=== PATIENT | female | born 1955 | race Caucasian/White ===

== ENCOUNTER 2017-05-04 17:10 | Emergency (ER) | payer OTHER | END 2017-05-04 19:58 | LOC: M ED 17:10 | DX: S22.41XA Multiple fractures of ribs, right side, initial encounter for closed fracture (principal); W01.0XXA Fall on same level from slipping, tripping and stumbling without subsequent striking against object, initial encounter; Y92.018 Other place in single-family (private) house as the place of occurrence of the external cause; M25.511 Pain in right shoulder; E78.00 Pure hypercholesterolemia, unspecified; E03.9 Hypothyroidism, unspecified; M81.0 Age-related osteoporosis without current pathological fracture; Z90.5 Acquired absence of kidney; Z79.899 Other long term (current) drug therapy; Z79.890 Hormone replacement therapy; Z88.0 Allergy status to penicillin; Z88.1 Allergy status to other antibiotic agents; Z88.5 Allergy status to narcotic agent | CPT/HCPCS: 71101 ==

== ENCOUNTER 2018-01-23 15:23 | Emergency (ER) | payer OTHER | END 2018-01-23 18:54 | disposition home or self-care (01) | LOC: M ED 15:23 | DX: S20.211A Contusion of right front wall of thorax, initial encounter (principal); W01.0XXA Fall on same level from slipping, tripping and stumbling without subsequent striking against object, initial encounter; Y92.89 Other specified places as the place of occurrence of the external cause; Z87.828 Personal history of other (healed) physical injury and trauma; Z79.899 Other long term (current) drug therapy; Z88.0 Allergy status to penicillin; Z88.1 Allergy status to other antibiotic agents; Z88.5 Allergy status to narcotic agent | CPT/HCPCS: 71101 ==

== ENCOUNTER → 2019-04-16 | Outpatient (CLI) | payer OTHER ==
[~2019-04-16] MED LIST: BONI1TAB PO; IBUP-1022 PO; SIMV20TA22 PO; SYNT50TA PO; TYLE650T35 PO; VITA50005 PO
--- NOTE | 2019-04-21 10:09 | DEXA ---
AP SPINE L2- L4 1.163 -0.4 1.0 LT FEMUR TOTAL 0.733 -2.2 -1.1 LT NECK 0.642 -2.8 -1.5 RT FEMUR TOTAL 0.675 -2.6 -1.5 RT NECK 0.654 -2.8 -1.4 TOTAL BODY TOTAL OTHER COMMENTS: Normal bone densitometry of the spine. There is osteoporosis of the hips. The density of the spine is increased 17.8% since the initial exam on 07/19/1998. The spine density has increased 9.1% since the most recent exam on 09/19/2012. The density of the left hip has increased 1.4% since the initial exam on 07/19/1998. The density of the left hip has decreased 7.6% since the most recent exam on 09/19/2012. The density of the right hip has decreased 0.9% since the initial exam on 10/07/2002. The density of the right hip has decreased 6.0% since the most recent exam on 09/19/2012. FOLLOW-UP: Recommendation for the next bone density exam: 2 years. ADAMARIS
== END ==
LOC: M WHC 14:40
PROVIDERS: ATTEND Internal Medicine
DX: M81.0 Age-related osteoporosis without current pathological fracture (principal); M85.851 Other specified disorders of bone density and structure, right thigh; M85.852 Other specified disorders of bone density and structure, left thigh

== ENCOUNTER 2020-07-10 20:42 | Observation (INO) | payer OTHER ==
[~2020-07-10 20:42] MED LIST changes: +ACET650T61 PO; -TYLE650T35 PO
[2020-07-10] MEDS ORDERED: BOOSTRIX/ADACEL VACCINE (DIPHTH/PERTUSS/ACELL/TETANUS) 0.5ML SYR IM ONE (21:40)
[2020-07-10] MEDS ORDERED: ACETAMINOPHEN TAB 650MG DOSE (2X325MG) PO ONE (21:40)
--- NOTE | 2020-07-10 22:29 | REPVR ---
PROCEDURE INFORMATION: Exam: CT Head Without Contrast Exam date and time: 07/10/2020 9:49 PM Age: 64 years old Clinical indication: Injury or trauma; Fall; Concussion/head injury; Additional info: Syncope TECHNIQUE: Imaging protocol: Computed tomography of the head without contrast. Radiation optimization: All CT scans at this facility use at least one of these dose optimization techniques: automated exposure control; mA and/or kV adjustment per patient size (includes targeted exams where dose is matched to clinical indication); or iterative reconstruction. COMPARISON: No relevant prior studies available. FINDINGS: Brain: There is generalized cerebral volume loss and chronic white matter changes. No midline shift or mass effect. No intracranial hemorrhage. Cerebral ventricles: The lateral and 3rd ventricles are dilated and cerebral sulci are effaced. Fourth ventricle is nondilated. No periventricular edema. Bones/joints: Unremarkable. No acute fracture. Paranasal sinuses: Visualized sinuses are unremarkable. No fluid levels. Mastoid air cells: Visualized mastoid air cells are well aerated. Soft tissues: Soft tissue swelling with small laceration in the right posterior scalp. No foreign bodies. IMPRESSION: 1. Hydrocephalus with enlargement of the 3rd and lateral ventricles. No periventricular edema. 2. No intracranial hemorrhage. 3. Right posterior scalp laceration. Electronically signed by: Amilcar Cordoba On 07/10/2020 22:29:22 PM
--- NOTE | 2020-07-10 22:35 | REPVR ---
PROCEDURE INFORMATION: Exam: XR Chest Exam date and time: 07/10/2020 10:02 PM Age: 64 years old Clinical indication: Pain; Other: Fall TECHNIQUE: Imaging protocol: XR of the chest. Views: 1 view. COMPARISON: CR Ribs uni W-PA CHEST ONLY 01/23/2018 4:57 PM FINDINGS: Lungs: Degree of lung inflation is normal. No evidence of pulmonary edema. No focal consolidation or parenchymal lung mass. Pleural spaces: No pneumothorax. Probable lateral right basilar pleural scar, unchanged Heart/Mediastinum: Cardiac silhouette appears normal. No adenopathy or hilar mass. Bones/joints: Subacute appearing lower right rib deformities.. Idiopathic pattern of thoracolumbar scoliosis is present. IMPRESSION: No acute or focal cardiopulmonary process. Electronically signed by: Vickey Choudhury On 07/10/2020 22:34:50 PM
--- NOTE | 2020-07-10 22:35 | REPVR ---
PROCEDURE INFORMATION: Exam: XR Pelvis Exam date and time: 07/10/2020 10:02 PM Age: 64 years old Clinical indication: Pelvic pain; Additional info: Fall TECHNIQUE: Imaging protocol: XR pelvis. Views: 1 or 2 view. COMPARISON: No relevant prior studies available. FINDINGS: Bones/joints: Symphysis and sacroiliac joints are aligned normally. Normal hip joint alignment. No acute fracture or bone lesion. Hip joint spaces are well-maintained. Soft tissues: No obturator ring fracture. No soft tissue asymmetry. No abnormal soft tissue calcification or mass. IMPRESSION: Unremarkable AP radiograph of the pelvis. Electronically signed by: Vickey Choudhury On 07/10/2020 22:35:22 PM
--- NOTE | 2020-07-10 22:35 | REPVR ---
PROCEDURE INFORMATION: Exam: CT Cervical Spine Without Contrast Exam date and time: 07/10/2020 9:49 PM Age: 64 years old Clinical indication: Injury or trauma; Fall; Concussion/head injury; Additional info: Syncope TECHNIQUE: Imaging protocol: Computed tomography images of the cervical spine without contrast. Radiation optimization: All CT scans at this facility use at least one of these dose optimization techniques: automated exposure control; mA and/or kV adjustment per patient size (includes targeted exams where dose is matched to clinical indication); or iterative reconstruction. COMPARISON: No relevant prior studies available. FINDINGS: Bones/joints: No acute fracture. No subluxation. Discs/Spinal canal/Neural foramina: Advanced discogenic degenerative changes. Advanced facet DJD with multilevel neural foraminal stenoses. No spinal stenosis. Lungs: Lung apices are normal. Soft tissues: Unremarkable. IMPRESSION: 1. No acute fracture. 2. Advanced degenerative spondylosis. Electronically signed by: Amilcar Cordoba On 07/10/2020 22:35:33 PM
[2020-07-10] MEDS ORDERED: BACITRACIN OINTMENT 30GM TUBE TOP STA (22:56)
[2020-07-10] MEDS ORDERED: amLODIPine 5 MG TAB PO ONE (23:00)
[2020-07-11 01:13] LABS: INR 0.97; PROTHROMBIN TIME 13.1 SECONDS (12.5-14.3)
[2020-07-11 01:14] LABS: PARTIAL THROMBOPLASTIN TIME 25.2 SECONDS (24.2-38.5)
[2020-07-11 02:06] LABS: BASO % 0.3 % (0.0-1.0); EOS % 0.1 % (0.0-3.0); HEMATOCRIT 42.8 % (36.0-47.0); HEMOGLOBIN 13.4 g/dl (12.0-15.5); LYMPH # 1.9 10^3/uL (1.5-5.0); MEAN CORPUSCULAR HEMOGLOBIN 28.9 pg (27.0-33.0); MEAN CORPUSCULAR HGB CONC 31.3 g/dl (32.0-36.5); MEAN CORPUSCULAR VOLUME 92.2 fl (80.0-96.0); MONO # 0.8 10^3/uL (0.0-0.8); MONO % 5.1 % (2.0-8.0); NEUTROPHILS # 12.7 10^3/uL (1.5-8.5); NEUTROPHILS % 82.2 % (36.0-66.0); PLATELET COUNT, AUTOMATED 341 10^3/uL (150-450); RED BLOOD COUNT 4.64 10^6/uL (4.00-5.40); WHITE BLOOD COUNT 15.5 10^3/uL (4.0-10.0)
[2020-07-11 02:42] LABS: BLOOD UREA NITROGEN 15 MG/DL (7-18); CALCIUM LEVEL 9.5 MG/DL (8.8-10.2); CARBON DIOXIDE LEVEL 26 MEQ/L (21-32); CHLORIDE LEVEL 109 MEQ/L (98-107); CK-MB VALUE MASS 1.4 NG/ML (<3.6); CPK CREATINE PHOSPHOKINASE 47 U/L (26-192); CREATININE FOR GFR 0.54 MG/DL (0.55-1.30); FREE T4 1.36 NG/DL (0.76-1.46); GLOMERULAR FILTRATION RATE > 60.0 (>45); GLUCOSE, FASTING 112 MG/DL (70-100); MB/CK RELATIVE INDEX 2.98 (< OR =4); POTASSIUM SERUM 4.1 MEQ/L (3.5-5.1); SODIUM LEVEL 142 MEQ/L (136-145); TROPONIN I 0.11 NG/ML (< 0.10)
[2020-07-11] MEDS ORDERED: VITA50005 PO (03:10)
[2020-07-11] MEDS ORDERED: ACETAMINOPHEN TAB 650MG DOSE (2X325MG) PO PRN (04:10)
[2020-07-11] MEDS ORDERED: MAALOX 30 ML SUSP *UDC PO PRN (04:10)
[2020-07-11] MEDS ORDERED: MOM 30ML SUSPENSION UDC PO PRN (04:10)
--- NOTE | 2020-07-11 04:11 | HPEPDOC ---
[facility] Medical History & Physical Date of Admission July 11, 2020 Date of Service: July 11, 2020 Attending Physician: NILO TAVAREZ MD History and Physical CHIEF COMPLAINT: [64 y/o female presents to ed after a fall] HISTORY OF PRESENT ILLNESS: [This is a 64 y/o female with a pmh of hypothyroidism, hydrocephalus s/p shunt placement, unknown heart murmur, childhood seizures, hyperlipidemia and kidney resection who presents to the ED after suffering a fall at her home. patient states that she was walking across her kitchen to receive a pizza she was cooking and the next thing she knew she was in an ambulance. Patient states that she believes she must have slipped and fell on her wooden kitchen floors. Patient states that she does not remember falling but states that she felt fine before the fall without dizziness, lightheadedness or palpitations. Patient states that she does not feel she was o verly groggy or confused after awaking from the fall. Patient states that as of now, she is not in much pain save for the wound she unfortunately suffered to her head after striking her head from the fall. Patient denies chest pain, sob, fever, chills, abd pain, hip pain, calf pain, n/v/d. Patient found to have elevated troponin of 0.11, hypertensive emergency in the ED.] PAST MEDICAL HISTORY: 1. [See HPI PAST SURGICAL HISTORY: 1. [Left kidney resection]. 2. [CSF shunt]. 3. [Spinal fusion w acuña bucky 4. Right foot, right wrist unspecified repairs]. SOCIAL HISTORY: Resides in: [Home alone] Tobacco use:[Denies] ETOH: [Rarely] Illicit drug use: [Denies] FAMILY HISTORY: reviewed - none pertinent ALLERGIES: Please see below. REVIEW OF SYSTEMS: CONSTITUTIONAL: [Denies malaise, fatigue]. HEENT: [Denies uri sx]. CARDIOVASCULAR: [See HPI]. RESPIRATORY: [See HPI]. GASTROINTESTINAL: [See HPI]. GENITOURINARY: [Denies dysuria]. SKIN: [Denies rash]. MUSCULOSKELETAL: [Denies acute joint pain]. NEUROLOGICAL: [Denies paresthesias]. ENDOCRINE: [Denies hx of DM]. HEMATOLOGIC/LYMPHATIC: [Denies easy brusiing]. HOME MEDICATIONS: Please see below. PHYSICAL EXAMINATION: VITAL SIGNS: Please see below GENERAL APPEARANCE: [This is a very pleasant 64 y/o female who appears her stated age. She is laying in bed in no apparent respiratory distress.]. HEENT: [bandage on scalp intact and dry. no mass or lesion. EOMI. No scleral icterus. Nares patent. Oral mucosa moist.]. CARDIOVASCULAR: [Regular rate, rhythm. 4/6 blowing murmur heard throughout.]. LUNGS: [Good air flow auscultated. No wheezing, rales, rhonchi.]. ABDOMEN: [Soft, non-tender]. MUSCULOSKELETAL: [No joint deformity]. EXTREMITIES: [No peripheral edema noted. Dry skin to b/l lower extremities. Pulses intact.]. NEUROLOGICAL: [Sensation intact. Patient moves all fours. Speech clear. A+Ox3. No focal deficits]. PSYCHIATRIC: [Mood and affect appear appropriate.]. LABORATORY DATA: See below. IMAGING: [Cervical spine CT: FINDINGS: Bones/joints: No acute fracture. No subluxation. Discs/Spinal canal/Neural foramina: Advanced discogenic degenerative changes. Advanced facet DJD with multilevel neural foraminal stenoses. No spinal stenosis. Lungs: Lung apices are normal. Soft tissues: Unremarkable. IMPRESSION: 1. No acute fracture. 2. Advanced degenerative spondylosis. Head CT: FINDINGS: Brain: There is generalized cerebral volume loss and chronic white matter changes. No midline shift or mass effect. No intracranial hemorrhage. Cerebral ventricles: The lateral and 3rd ventricles are dilated and cerebral sulci are effaced. Fourth ventricle is nondilated. No periventricular edema. Bones/joints: Unremarkable. No acute fracture. Paranasal sinuses: Visualized sinuses are unremarkable. No fluid levels. Mastoid air cells: Visualized mastoid air cells are well aerated. Soft tissues: Soft tissue swelling with small laceration in the right posterior scalp. No foreign bodies. IMPRESSION: 1. Hydrocephalus with enlargement of the 3rd and lateral ventricles. No periventricular edema. 2. No intracranial hemorrhage. 3. Right posterior scalp laceration. Chest x-ray: FINDINGS: Lungs: Degree of lung inflation is normal. No evidence of pulmonary edema. No focal consolidation or parenchymal lung mass. Pleural spaces: No pneumothorax. Probable lateral right basilar pleural scar, unchanged Heart/Mediastinum: Cardiac silhouette appears normal. No adenopathy or hilar mass. Bones/joints: Subacute appearing lower right rib deformities.. Idiopathic pattern of thoracolumbar scoliosis is present. IMPRESSION: No acute or focal cardiopulmonary process. Pelvis x-ray: FINDINGS: Bones/joints: Symphysis and sacroiliac joints are aligned normally. Normal hip joint alignment. No acute fracture or bone lesion. Hip joint spaces are well-maintained. Soft tissues: No obturator ring fracture. No soft tissue asymmetry. No abnormal soft tissue calcification or mass. IMPRESSION: Unremarkable AP radiograph of the pelvis. ] MICROBIOLOGY: Please see below. ASSESSMENT: [This is a 64 y/o female with a pmh of hypothyroidism, hydrocephalus s/p shunt placement, unknown heart murmur, childhood seizures, hyperlipidemia and kidney resection who presents to the ED after suffering a fall at her home. Patient does not remember falling which suggests syncope.]. . PLAN: 1. [Syncope - Most likely cause of patients fall. Cardiac vs. neuro cause - Order echo, carotid us, hba1c and lipid profile - Order prolactin, eeg - Consider pt/ot - Patient lives alone, may benefit from occasional visit from home health aid d/t her health issues - Admit to med surg tele 2. Hypertensive emergency - Likely the cause of patients troponin leak - bp max 200/99 in ed - Will trend troponin - Patient on no bp meds at home, would likely benefit from chronic therapy 3. Hydrocephalus s/p shunt placement - stable 4. HLD - continue simvastatin 5. Hypothyroidism - continue levothyroxine DVT prophylaxis - Teds and SCDs]. Vital Signs Vital Signs Date Time Temp Pulse Resp B/P (MAP) Pulse Ox O2 Delivery O2 Flow Rate FiO2 07/10/20 23:51 78 200/99 07/10/20 21:03 16 99 Room Air Laboratory Data Labs 24H Laboratory Tests 2 07/10/20 23:31: Immature Granulocyte % (Auto) 0.3, Neutrophils (%) (Auto) 82.2H, Lymphocytes (%) (Auto) 12.0L, Monocytes (%) (Auto) 5.1, Eosinophils (%) (Auto) 0.1, Basophils (%) (Auto) 0.3, Neutrophils # (Auto) 12.7H, Lymphocytes # (Auto) 1.9, Monocytes # (Auto) 0.8, Eosinophils # (Auto) 0.0, Basophils # (Auto) 0.0, Nucleated Red Blood Cells % (auto) 0.0, Prothrombin Time 13.1, Prothromb Time International Ratio 0.97, Activated Partial Thromboplast Time 25.2 07/10/20 23:48: Lactic Acid Level 1.7 07/11/20 02:02: Anion Gap 7L, Glomerular Filtration Rate > 60.0, Calcium Level 9.5, Magnesium Level 2.0, Total Creatine Kinase 47, Creatine Kinase MB 1.4, Creatine Kinase MB Relative Index 2.98, Troponin I 0.11H, Thyroid Stimulating Hormone (TSH) 2.180, Free Thyroxine 1.36 CBC/BMP Laboratory Tests 07/10/20 23:31 07/11/20 02:02 Home Medications Scheduled Ergocalciferol (Vitamin D2) (Vitamin D2) 50,000 Units Cap, 50,000 UNITS PO 3XW TUE,TH,SAT Ibandronate Sodium (Boniva) 150 Mg Tab, Unknown Dose PO QMONTH 11TH Levothyroxine Sodium (Synthroid) 50 Mcg Tab, 50 MCG PO QAM Simvastatin (Simvastatin) 20 Mg Tab, 20 MG PO QHS Allergies Coded Allergies: Penicillins (Verified Allergy, Unknown, DISORIENTED, 07/11/20) codeine (Verified Adverse Reaction, Unknown, NAUSEA/VOMIT, 07/11/20) erythromycin base (Verified Adverse Reaction, Unknown, NAUSEA/VOMIT, 07/11/20) A-FIB/CHADSVASC A-FIB History Current/History of A-Fib/PAF?: No Attending Note Attending Note time of service 430am Ms. Bunch is a 64 yr old w hypothyroidism, hydrocephalus s/p shunt placement & childhood seizures who is admitted for evaluation of syncope and elevated troponin likely related to accelerated HTN; after receiving a CCB her repeat BP was 154/89. We will start amlodipine and Lisinopril, check prolactin and EEG. rest per TATUM Rivero's H&P IVONNE RIVERO July 11, 2020 04:11 NILO TAVAREZ MD July 11, 2020 07:08
[2020-07-11 04:28] LABS: CHOLESTEROL LEVEL 143 MG/DL (<200); CHOLESTEROL RISK RATIO 2.918 (<5); HDL CHOLESTEROL 49 MG/DL (>40); LDL CHOLESTEROL 78 MG/DL (<100); NON-HDL-C 94 MG/DL; TRIGLYCERIDES LEVEL 78 MG/DL (<150)
[2020-07-11] MEDS: LEVOTHYROXINE 50MCG TABLET (0.05MG) PO SCH (06:04)
[2020-07-11] MEDS ORDERED: LISINOPRIL *2.5 MG* TAB PO SCH (07:05)
--- NOTE | 2020-07-11 07:14 | REPVR ---
PROCEDURE INFORMATION: Exam: US Duplex Bilateral Extracranial Arteries Exam date and time: 07/11/2020 6:31 AM Age: 64 years old Clinical indication: Syncope and collapse TECHNIQUE: Imaging protocol: Real-time Duplex ultrasound scan of the bilateral carotid and vertebral arteries combining lovett scale, color Doppler and spectral waveform analysis. Bilateral exam. COMPARISON: CT Head without contrast 07/10/2020 9:39 PM FINDINGS: There is no significant plaque demonstrated involving the carotid bifurcations bilaterally. Vertebral artery flow is antegrade on the left. The right vertebral artery was not visualized. The following peak velocities were obtained (Systolic (Diastolic) in cm/sec) Right CCA: 88 Right ICA: Proximal 81 (15), Mid 82 (16), Distal 99 (24) Right ECA: 63 Left CCA: 77 Left ICA: Proximal 52 (14), Mid 51 (12), Distal not visualized Left ECA: 81 Peak ICA/CCA ratios: Right: 1.1 Left: 0.7 IMPRESSION: 1. There is no Doppler evidence for hemodynamically significant carotid artery stenosis on the right. This is on the basis of peak internal carotid artery systolic velocity and peak ICA/CCA systolic velocity ratio. 2. There is no Doppler evidence for hemodynamically significant carotid artery stenosis on the left. This is on the basis of peak internal carotid artery systolic velocity and peak ICA/CCA systolic velocity ratio. The distal left internal carotid artery was not visualized, significance uncertain. Consider alternate evaluation, such as CT or MR angiogram. 3. Antegrade vertebral artery flow on the left. Right vertebral artery not visualized. Again, consider alternate imaging. REFERENCES: SRU CRITERIA. The degree of internal carotid artery stenosis is based on criteria defined by the Society of Radiologists in Ultrasound (SRU). Normal is no stenosis. Mild is less than 50% stenosis. Moderate is 50-69% stenosis. Severe is greater than 69% stenosis to near occlusion. Near occlusion is a markedly narrowed lumen. Total occlusion is no detectable patent lumen. Electronically signed by: Immanuel Osorio On 07/11/2020 07:13:50 AM
[2020-07-11 07:20] LABS: HEMOGLOBIN A1c 6.3 %
[2020-07-11] MEDS: DOCUSATE SODIUM 100MG CAPSULE PO SCH ×2 (09:00→20:35)
[2020-07-11 10:11] LABS: PROLACTIN 14.8 NG/ML
[2020-07-11 10:15] VITALS: BP 149/92
[2020-07-11] MEDS ORDERED: LISINOPRIL *2.5 MG* TAB PO ONE (11:00)
--- NOTE | 2020-07-11 11:02 | IPN ---
PROGRESS NOTE DATE: 07/11/2020 SUBJECTIVE: Xiomara was seen in the EEG Department, she fell at home, she thinks she might have struck her head, woke up in the ambulance. She has a history of [employer] shunt. She used to follow with the Dr. Par[facility]. Her blood pressure was elevated on admission, it has gotten better since she left the Emergency Room. She denies any headache or neck pain. Mental status is at baseline. She has no neck stiffness. No fever, chills or cough. PHYSICAL EXAMINATION: VITAL SIGNS: Blood pressure 160/87, pulse 75, respiratory rate 20. GENERAL APPEARANCE: Alert, conversant, in no distress. No facial droop or weakness. LUNGS: Clear. HEART: Regular rate and rhythm without murmur. ABDOMEN: Nontender, no masses. EXTREMITIES: No clonus. NEUROLOGIC: Nonfocal, normal strength. No rigidity. I was not able to test her gait. CT of the brain showed lateral and third ventricles are dilated. Cerebral sulci are effaced. I went through [facility], it sounds like the exact same report as CT of the brain from 2002 including the effaced cerebral foci (patient cannot get an MRI scan, having been told that the Delaney rods that were placed would prohibit this). LABORATORY DATA: White count 15.5, hemoglobin 13.4, platelets 341,000, sodium 142, potassium 4.1, BUN 15, creatinine 0.5, glucose 112. Troponins are flat. IMPRESSION: 1. Syncopal episode with fall. She does not have any signs of trauma on exam. She will be admitted to the Telemetry Unit. EEG has been ordered. I was concerned about the CT findings until I found one from 2002 that sounds exactly the same. She has no signs on exam of increased intracranial pressure. 2. Hypertension. Blood pressure has come down with Lisinopril and amlodipine which we will continue. I will increase the dose of Lisinopril to 5 mg daily, giving her another 2.5 mg of Lisinopril now and starting 5 mg daily tomorrow. She will probably be stable for discharge tomorrow after being observed on telemetry for 24 hours.
[2020-07-11 14:00] VITALS: BP 102/65
--- NOTE | 2020-07-11 19:25 | ECGEPIP ---
[facility] Test Date: 2020-07-10 Pat Name: MANNY SAAVEDRA Department: Room: [place] [address] Gender: Female [employer]: : 1955 Requested By: DAKOTA FRANCISCO Order Number: [id number] Reading MD: Alejandro Zuluaga Measurements Intervals [place] Rate: 72 P: 50 VA: 150 QRS: 21 QRSD: 86 T: 54 QT: 428 QTc: 468 Interpretive Statements Normal sinus rhythm Moderate voltage criteria for LVH, may be normal variant ( Sokolow-Sepulveda , [place] product ) Baseline artifact Comparison tracing not on file Electronically Signed on 07-11-2020 19:25:47 EDT by Alejandro Zuluaga
[2020-07-11] MEDS: SIMVASTATIN 20 MG TAB PO SCH (20:35)
[2020-07-11 22:00] VITALS: BP 113/77
[2020-07-12] MEDS: LEVOTHYROXINE 50MCG TABLET (0.05MG) PO SCH (05:36)
[2020-07-12 06:00] VITALS: BP 108/75
[2020-07-12 06:43] LABS: HEMATOCRIT 41.7 % (36.0-47.0); HEMOGLOBIN 12.7 g/dl (12.0-15.5); MEAN CORPUSCULAR HEMOGLOBIN 28.2 pg (27.0-33.0); MEAN CORPUSCULAR HGB CONC 30.5 g/dl (32.0-36.5); MEAN CORPUSCULAR VOLUME 92.5 fl (80.0-96.0); PLATELET COUNT, AUTOMATED 309 10^3/uL (150-450); RED BLOOD COUNT 4.51 10^6/uL (4.00-5.40); WHITE BLOOD COUNT 10.4 10^3/uL (4.0-10.0)
[2020-07-12 07:11] LABS: BLOOD UREA NITROGEN 17 MG/DL (7-18); CALCIUM LEVEL 8.9 MG/DL (8.8-10.2); CARBON DIOXIDE LEVEL 26 MEQ/L (21-32); CHLORIDE LEVEL 116 MEQ/L (98-107); CREATININE FOR GFR 0.66 MG/DL (0.55-1.30); GLOMERULAR FILTRATION RATE > 60.0 (>45); GLUCOSE, FASTING 116 MG/DL (70-100); POTASSIUM SERUM 3.7 MEQ/L (3.5-5.1); SODIUM LEVEL 146 MEQ/L (136-145)
--- NOTE | 2020-07-12 08:36 | EEG ---
ELECTROENCEPHALOGRAM DATE: 07/11/2020 DIAGNOSIS: Syncope, history of seizures. EEG# [id number]. REFERRING PHYSICIAN: Benjamin Wu MD. HISTORY: Patient is a 64-year-old woman who was admitted at [facility] after a fall. This EEG was done to rule out epileptic potential. She is currently taking amlodipine, Colace, simvastatin, levothyroxine, etc. TECHNICAL DESCRIPTION: This digital EEG was recorded by 21-scalp, ear, and two EKG electrodes and was reviewed in bipolar and referential montages following reformatting in 10-20 international electrode placement system. INTERPRETATION: Patient was noted to be in awake and drowsy states during this EEG. Resting and awake background rhythm consisted of well-formed posterior dominant rhythm with anterior-posterior gradient comprising of 8.5 Hz alpha activity measuring 15-40 microvolts in amplitude, which was symmetric and reactive to eye opening. Attenuation of posterior dominant rhythm was seen during transition into drowsiness. Stage 1 and 2 sleep were reviewed and were symmetric bilaterally. Hyperventilation could not be performed. Photic stimulation remained unremarkable. EKG revealed normal sinus rhythm. No focal, lateralizing, or epileptiform abnormalities were seen. No relevant clinical activity was noted. CONCLUSION: This EEG in awake, drowsy states, stage 1 and 2 sleep is within normal limits.
[2020-07-12] MEDS ORDERED: VITAMIN D 50,000 UNITS CAPSULE (ERGOCALCIFEROL 1.25MG) PO SCH (09:00)
[2020-07-12] MEDS: DOCUSATE SODIUM 100MG CAPSULE PO SCH ×2 (10:05→20:39)
[2020-07-12] MEDS: lisinopriL 5 MG TAB PO SCH (10:05)
--- NOTE | 2020-07-12 13:39 | IPNPDOC ---
Subjective Date Seen The patient was seen on 07/12/20. Subjective Chief Complaint/HPI Xiomara is well this am, no further syncope Objective Physical Examination General Exam: Positive: Cooperative Eye Exam: Positive: PERRLA, Conjunctiva & lids normal, EOMI; Negative: Sclera icteric Chest Exam: Positive: Clear to auscultation, Normal air movement Heart Exam: Positive: Rate Normal, Regular Rhythm, Normal S1, Normal S2; Negative: Murmurs, Rubs Abdomen Exam: Positive: Normal bowel sounds, Soft; Negative: Tenderness, Hepatospenomegaly Neuro Exam: Positive: Strength at 5/5 X4 ext, Normal Tone, Sensation Intact Assessment /Plan Assessment # Syncope - eeg/carotids/labs are normal - echol results pending - home once echo results known Plan/VTE VTE Prophylaxis Ordered?: Yes VS, I&O, 24H, Fishbone Vital Signs/I&O Vital Signs Date Time Temp Pulse Resp B/P (MAP) Pulse Ox O2 Delivery O2 Flow Rate FiO2 07/12/20 10:05 140/76 07/12/20 10:05 70 07/12/20 06:00 97.5 16 95 Room Air I&O- Last 24 Hours up to 6 AM 07/12/20 05:59 Intake Total 600 ml Output Total 450 ml Balance 150 ml Laboratory Data 24H LABS Laboratory Tests 2 07/12/20 06:23: Nucleated Red Blood Cells % (auto) 0.0, Anion Gap 4L, Glomerular Filtration Rate > 60.0, Calcium Level 8.9 CBC/BMP Laboratory Tests 07/12/20 06:23 Microbiology Microbiology 07/11/20 Respiratory Virus Panel (PCR) (BAY) - Final, Complete OC SCHNEIDER MD July 12, 2020 13:38
[2020-07-12 14:00] VITALS: BP 135/88
[2020-07-12] MEDS: SIMVASTATIN 20 MG TAB PO SCH (20:39)
[2020-07-12 22:00] VITALS: BP 129/88
[2020-07-13] MEDS: LEVOTHYROXINE 50MCG TABLET (0.05MG) PO SCH (05:23)
[2020-07-13 06:00] VITALS: BP 149/75
[2020-07-13 06:25] LABS: HEMATOCRIT 41.2 % (36.0-47.0); HEMOGLOBIN 12.6 g/dl (12.0-15.5); MEAN CORPUSCULAR HEMOGLOBIN 29.2 pg (27.0-33.0); MEAN CORPUSCULAR HGB CONC 30.6 g/dl (32.0-36.5); MEAN CORPUSCULAR VOLUME 95.6 fl (80.0-96.0); PLATELET COUNT, AUTOMATED 337 10^3/uL (150-450); RED BLOOD COUNT 4.31 10^6/uL (4.00-5.40); WHITE BLOOD COUNT 11.8 10^3/uL (4.0-10.0)
[2020-07-13 06:51] LABS: BLOOD UREA NITROGEN 18 MG/DL (7-18); CALCIUM LEVEL 9.1 MG/DL (8.8-10.2); CARBON DIOXIDE LEVEL 26 MEQ/L (21-32); CHLORIDE LEVEL 118 MEQ/L (98-107); CREATININE FOR GFR 0.62 MG/DL (0.55-1.30); GLOMERULAR FILTRATION RATE > 60.0 (>45); GLUCOSE, FASTING 122 MG/DL (70-100); POTASSIUM SERUM 4.6 MEQ/L (3.5-5.1); SODIUM LEVEL 149 MEQ/L (136-145)
[2020-07-13 08:36] VITALS: BP 157/90
[2020-07-13] MEDS: DOCUSATE SODIUM 100MG CAPSULE PO SCH (08:36)
[2020-07-13] MEDS: lisinopriL 5 MG TAB PO SCH (08:36)
--- NOTE | 2020-07-13 08:54 | ECHO ---
DATE OF PROCEDURE: 07/12/2020 Age: 64 Gender: Female Height: 160 cm Weight: 68 kg REFERRING PHYSICIAN: Ronit Le MD. INDICATION: Syncope. MEASUREMENTS: IVS 0.9 cm LV 4.7 cm LVPW 0.8 cm LA 2.9 cm Aorta 2.7 cm Mitral E wave velocity 73 cm/s Mitral A wave 102 cm/s E prime septal 5.2 cm/s E prime lateral 4.2 cm/s FINDINGS: This study is of acceptable technical quality. Underlying sinus rhythm. Left ventricle is normal size and hyperdynamic contractility. I estimate overall LVEF 70% to 75%. Right ventricle has normal size and systolic function. Both atria appear grossly normal. Aortic valve is tricuspid and has normal mobility. Mitral valve appears structurally intact. There is prominent systolic anterior motion of both mitral leaflets. Tricuspid valve appears normal. Pulmonic valve was not well seen. No pericardial effusion is noted. Aortic root and abdominal aorta appear normal. Aortic arch was not well seen. Doppler interrogation of aortic valve reveals no significant aortic stenosis or insufficiency. There was a prominent intraventricular outflow tract gradient that at its peak reached 74 mmHg. It is likely that the actual gradient is even higher because the quality of tracing was suboptimal. Also, the patient was unable to perform Valsalva maneuver. There is approximately mild or [id number] mitral insufficiency related to systolic anterior motion of mitral leaflets during systole. Tricuspid valve exhibits trace insufficiency. Quality of TR jet was not sufficient to estimate pulmonary artery pressure. Mitral inflow pattern and tissue Doppler imaging of the mitral annulus revealed grade 1 diastolic dysfunction. CONCLUSIONS: 1. Study is of acceptable technical quality, underlying sinus rhythm. 2. Normal LV size with hyperdynamic LV systolic function, estimated LVEF 70% to 75%. Grade 1 diastolic dysfunction. 3. Normal RV size and systolic function. 4. Normal aortic valve without significant stenosis or insufficiency. 5. Prominent left ventricular outflow tract gradient (at least 74 mmHg) with resulting turbulent flow in LVOT and systolic anterior motion of mitral leaflets with [id number] mitral insufficiency. 6. Unable to estimate central venous pressure and pulmonary artery pressure. COMMENT: The degree of LVOT gradient potentially can get higher with activity. It potentially could be contributing to the patients syncopal event depending on clinical scenario. Avoidance of diuretics and use of negatively inotropic drugs like beta-blockers are recommended. Generally increasing circulating volume alleviates symptoms related to this pathophysiologic mechanism. MTDD
[2020-07-13] MEDS ORDERED: AMLO25TA PO (10:59)
[2020-07-13] MEDS ORDERED: LISI-898 PO (10:59)
--- NOTE | 2020-07-13 12:44 | DSES ---
DISCHARGE SUMMARY DATE OF ADMISSION: 07/10/2020 DATE OF DISCHARGE: 07/13/2020 DISCHARGE DIAGNOSES: 1. Vasovagal syncope. 2. Hypertensive urgency. 3. History of hydrocephalus status post shunt placement. 4. Hyperlipidemia. 5. Hypothyroidism. 6. Head laceration. PROCEDURE(S) PERFORMED DURING HOSPITALIZATION: None. DISPOSITION: The patient is discharged home in stable condition. DISCHARGE INSTRUCTIONS: The patient is instructed to follow-up with her PCP in approximately one week to have her maryellen removed, as well as for cardiology referral for echo findings of possible left ventricular outflow tract obstruction. DISCHARGE MEDICATIONS: 1. Lisinopril 5 mg p.o. daily. 2. Vitamin D 50,000 units Saturday, , and Saturday. 3. Simvastatin 20 mg at bedtime. 4. Colace 100 mg twice a day. 5. Norvasc 2.5 mg daily. 6. Synthroid 50 mcg daily. DISCHARGE PHYSICAL EXAMINATION: VITAL SIGNS: At the time of discharge, the patient's temperature is 97.9, pulse 76 and regular, respirations 20, blood pressure 158/94, O2 saturation 98% on room air. GENERAL: Xiomara is alert and oriented x3. She appears in no acute distress. HEENT: Head is normocephalic. Her maryellen are intact without any visible exsanguination. Pupils symmetric and reactive to light. Oropharynx is clear. NECK: Supple. LUNGS: Sounds are present without rales or rhonchi. HEART: S1, S2. She has a loud grade 3/6 systolic murmur. She has no rubs or gallops noted. ABDOMEN: Soft, nontender, and nondistended. EXTREMITIES: Without any significant cyanosis, clubbing, or edema. PERTINENT IMAGING STUDIES: Carotid Dopplers were unremarkable for any carotid artery disease; please see report for details. X-ray of her pelvis showed no acute fracture. Chest x-ray showed no acute cardiopulmonary process. CT of the head without contrast showed hydrocephalus with enlargement of the left lateral ventricles. No periventricular edema. Right posterior scalp laceration. No intracranial hemorrhage. When compared to previous CT scan, there is no change in the hydrocephalus. CT of the cervical spine showed no acute fracture. Echocardiogram with Doppler; please reference full report, but this showed that the patient had normal left ventricular ejection fraction with grade 1 diastolic dysfunction. LVEF measured at 70% to 75% with normal RV size and systolic function. She has left ventricular outflow tract gradient with resulting turbulent flow, LVOT and systolic anterior motion of mitral leaflet with [id number] to mitral insufficiency. Unable to estimate central venous pressure of the pulmonary artery. The degree of LVOT gradient potentially can get higher with activity and potentially could be contributing to the patient's syncopal event depending on clinical scenario. Avoidance of diuretics or the use of negative inotropic drugs like beta-blockers is recommended. Generally increase in circulating volume leading to these symptoms is related to pathophysiological mechanism. RELEVANT LABORATORY DATA: Serial troponin markers x2 were negative. Hemoglobin 12.6, hematocrit 41.2, platelet count 337,000, white blood cell count 11.8. Lactic acid was not measured. Hemoglobin A1c was 6.3%. Cholesterol 143, LDL 78, non-HDL 94, total HDL 49. TSH was 2.1, free T4 was 1.36. Procalcitonin 14.8. Sodium 149, potassium 4.6, chloride 118, anion gap 26, BUN 18, creatinine 0.62, glucose 122, calcium 9.1. HOSPITAL COURSE: Xiomara is a 64-year-old woman who was walking in her home and had a syncopal episode striking her head. She was brought to the hospital via ambulance. She had no recollection of what had occurred. She was admitted to the hospital service for observation for her syncope. Her laceration was repaired in the emergency room with maryellen. The patient was noted to be hypertensive on admission. She was started on oral low dose Norvasc, as well as lisinopril with improvement in her blood pressure. Echocardiogram was obtained and this showed possible physiologic left ventricular outflow tract gradient that could have contributed to her symptoms. The patient was recommended to avoid diuretics, beta-blockers, and to stay hydrated. She was discharged home in stable condition. Total of 30 minutes spent completing all discharge paperwork.
== END 2020-07-13 16:34 | disposition home or self-care (01) ==
LOC: M ED 20:42 → M ED INP 20:43 → ENRESERV 07-11 06:30 → M MSPAV 07-11 10:10
PROVIDERS: ADMIT Internal Medicine; ATTEND Internal Medicine
DX: R55 Syncope and collapse (principal); I16.0 Hypertensive urgency; S01.91XA Laceration without foreign body of unspecified part of head, initial encounter; W19.XXXA Unspecified fall, initial encounter; Y92.000 Kitchen of unspecified non-institutional (private) residence as the place of occurrence of the external cause; Y93.9 Activity, unspecified; Y99.9 Unspecified external cause status; G91.2 (Idiopathic) normal pressure hydrocephalus; Z98.2 Presence of cerebrospinal fluid drainage device; E78.49 Other hyperlipidemia; E03.9 Hypothyroidism, unspecified; Z79.899 Other long term (current) drug therapy; Z88.1 Allergy status to other antibiotic agents; Z88.0 Allergy status to penicillin; Z88.5 Allergy status to narcotic agent; Z91.81 History of falling

== ENCOUNTER 2020-10-01 21:09 | Emergency (ER) | payer MEDICARE, OTHER ==
[~2020-10-01] VITALS: Ht 160 cm; Wt 69.6 kg
[~2020-10-01 21:09] MED LIST changes: +AMLO25TA PO; +ERGO500029 PO; +LISI-898 PO
[2020-10-01] MEDS ORDERED: DOCUSATE SOD LIQ 100MG/10ML UDC PO ONE ×2 (21:45→21:50)
[2020-10-02 01:09] VITALS: BP 143/65
== END 2020-10-02 01:10 | disposition home or self-care (01) ==
LOC: M ED 21:09
DX: H61.23 Impacted cerumen, bilateral (principal); I10 Essential (primary) hypertension; E78.5 Hyperlipidemia, unspecified; G91.9 Hydrocephalus, unspecified; Z79.899 Other long term (current) drug therapy; Z88.0 Allergy status to penicillin; Z88.5 Allergy status to narcotic agent

== ENCOUNTER 2020-10-16 15:26 | Emergency (ER) | payer MEDICARE, OTHER ==
--- NOTE | 2020-10-16 18:06 | REP ---
INDICATION: pain calcaneus, no ILIANA COMPARISON: None. TECHNIQUE: AP, lateral, bilateral oblique views left foot. FINDINGS: Osteopenia and generalized age-related changes are appreciated without obvious acute fracture or dislocation. Lateral view demonstrates small calcaneal heel spur with adjacent soft tissue calcification. No further soft tissue abnormality, subcutaneous emphysema or foreign body identified. IMPRESSION: Age-related osteopenia and degenerative changes as noted above. <Electronically signed by Minor Davis > 10/16/20 [id number]
--- NOTE | 2020-10-16 18:45 | REP ---
INDICATION: pain, no ILIANA, calf swelling COMPARISON: None. TECHNIQUE: Chen scale and color Doppler evaluation using linear high frequency transducer. FINDINGS: Ultrasound examination of the lower extremity deep venous structures from the common femoral vein through the popliteal vein demonstrates normal compressibility flow and wave patterns in response to respiration and augmentation. Calf veins could not be evaluated due to edema. There is no evidence for deep venous thrombosis. Contralateral CFV is patent and normal. IMPRESSION: No evidence for deep venous thrombosis. <Electronically signed by Minor Davis > 10/16/20 [id number]
[2020-10-16] MEDS ORDERED: ANEC4CRE3 TOP (19:04)
[2020-10-16 19:07] VITALS: BP 181/87
== END 2020-10-16 19:18 | disposition home or self-care (01) ==
LOC: M ED 15:26
DX: M77.32 Calcaneal spur, left foot (principal); R22.42 Localized swelling, mass and lump, left lower limb; I10 Essential (primary) hypertension; M85.872 Other specified disorders of bone density and structure, left ankle and foot; E03.9 Hypothyroidism, unspecified; Z79.899 Other long term (current) drug therapy; Z88.0 Allergy status to penicillin; Z88.5 Allergy status to narcotic agent

== ENCOUNTER 2022-02-17 18:44 | Emergency (ER) | payer MEDICARE, OTHER ==
[~2022-02-17] VITALS: Ht 162.6 cm; Wt 68.2 kg
[~2022-02-17 18:44] MED LIST changes: +ANEC4CRE3 TOP; -LISI-898 PO; +LISI5TAB11 PO
[2022-02-17] MEDS ORDERED: METO1TAB7 (19:01)
[2022-02-18 07:31] LABS: BASO % 0.4 % (0.0-1.0); EOS # 0.1 10^3/uL (0.0-0.5); EOS % 0.7 % (0.0-3.0); HEMATOCRIT 53.1 % (36.0-47.0); HEMOGLOBIN 16.5 g/dl (12.0-15.5); LYMPH # 2.4 10^3/uL (1.5-5.0); MEAN CORPUSCULAR HEMOGLOBIN 28.9 pg (27.0-33.0); MEAN CORPUSCULAR HGB CONC 31.1 g/dl (32.0-36.5); MONO # 0.7 10^3/uL (0.0-0.8); MONO % 6.1 % (2.0-8.0); NEUTROPHILS # 8.2 10^3/uL (1.5-8.5); NEUTROPHILS % 71.5 % (36.0-66.0); PLATELET COUNT, AUTOMATED 244 10^3/uL (150-450); RED BLOOD COUNT 5.71 10^6/uL (4.00-5.40); WHITE BLOOD COUNT 11.4 10^3/uL (4.0-10.0)
[2022-02-18 08:11] LABS: MAGNESIUM LEVEL 2.1 MG/DL (1.8-2.4)
[2022-02-18 08:14] LABS: ALBUMIN 4.1 G/DL (3.2-5.2); ALKALINE PHOSPHATASE 90 U/L (46-116); ALT/SGPT 15 U/L (7.0-40); AST/SGOT 15 U/L (<34); BILIRUBIN,TOTAL 0.6 MG/DL (0.3-1.2); BLOOD UREA NITROGEN 15 MG/DL (9-23); CALCIUM LEVEL 10.1 MG/DL (8.3-10.6); CARBON DIOXIDE LEVEL 26 MMOL/L (20-31); CHLORIDE LEVEL 107 MMOL/L (98-107); CREATININE FOR GFR 0.56 MG/DL (0.55-1.30); GLOMERULAR FILTRATION RATE > 60.0 (>45); GLUCOSE, FASTING 113 MG/DL (74-106); POTASSIUM SERUM 4.5 MMOL/L (3.5-5.1); SODIUM LEVEL 143 MMOL/L (136-145); TOTAL PROTEIN 7.6 G/DL (5.7-8.2)
[2022-02-18] MEDS ORDERED: NS 1,000 ML IV ONE (10:45)
[2022-02-18] MEDS ORDERED: BACT800T5 PO (16:03)
[2022-02-18] MEDS ORDERED: BACTRIM 160MG/800MG DS TAB PO ONE (16:05)
[2022-02-18 17:25] VITALS: BP 147/85
== END 2022-02-18 17:28 | disposition home or self-care (01) ==
LOC: M ED 18:44
DX: R22.41 Localized swelling, mass and lump, right lower limb (principal); D72.829 Elevated white blood cell count, unspecified; M19.071 Primary osteoarthritis, right ankle and foot; I10 Essential (primary) hypertension; E78.5 Hyperlipidemia, unspecified; E03.9 Hypothyroidism, unspecified; M43.00 Spondylolysis, site unspecified; G91.9 Hydrocephalus, unspecified; Z98.2 Presence of cerebrospinal fluid drainage device; Z88.0 Allergy status to penicillin; Z88.1 Allergy status to other antibiotic agents; Z88.5 Allergy status to narcotic agent; Z79.899 Other long term (current) drug therapy

== ENCOUNTER 2022-12-19 14:55 | Observation (INO) | payer MEDICARE, OTHER ==
[~2022-12-19] VITALS: Ht 162.6 cm; Wt 58.9 kg
[~2022-12-19 14:55] MED LIST changes: +BACT800T5 PO; +METO1TAB7
[2022-12-19 17:48] LABS: RSV AMPLIFICATION NEGATIVE (NEGATIVE)
[2022-12-19 17:49] LABS: BASO % 0.2 % (0.0-1.0); EOS # 0.1 10^3/uL (0.0-0.5); EOS % 0.4 % (0.0-3.0); HEMOGLOBIN 15.5 g/dl (12.0-15.5); LYMPH # 1.4 10^3/uL (1.5-5.0); MEAN CORPUSCULAR HEMOGLOBIN 29.1 pg (27.0-33.0); MEAN CORPUSCULAR HGB CONC 31.6 g/dl (32.0-36.5); MEAN CORPUSCULAR VOLUME 91.9 fl (80.0-96.0); MONO # 0.9 10^3/uL (0.0-0.8); MONO % 7.3 % (2.0-8.0); NEUTROPHILS # 10.4 10^3/uL (1.5-8.5); NEUTROPHILS % 80.8 % (36.0-66.0); PLATELET COUNT, AUTOMATED 316 10^3/uL (150-450); RED BLOOD COUNT 5.33 10^6/uL (4.00-5.40); WHITE BLOOD COUNT 12.9 10^3/uL (4.0-10.0)
[2022-12-19 18:18] LABS: BLOOD UREA NITROGEN 13 MG/DL (9-23); CALCIUM LEVEL 10.6 MG/DL (8.3-10.6); CARBON DIOXIDE LEVEL 28 MMOL/L (20-31); CHLORIDE LEVEL 103 MMOL/L (98-107); CREATININE FOR GFR 0.59 MG/DL (0.55-1.30); GLOMERULAR FILTRATION RATE > 60.0 (>45); GLUCOSE, FASTING 102 MG/DL (74-106); MAGNESIUM LEVEL 2.1 MG/DL (1.8-2.4); POTASSIUM SERUM 3.9 MMOL/L (3.5-5.1); SODIUM LEVEL 141 MMOL/L (136-145)
[2022-12-19 18:20] LABS: THYROID STIMULATING HORMONE 2.653 uIU/ML (0.55-4.78)
[2022-12-19 18:21] LABS: FREE T4 1.81 NG/DL (0.89-1.76)
[2022-12-19] MEDS ORDERED: MED REC IN PROGRESS XX SCH (22:20)
[2022-12-19] MEDS ORDERED: cefTRIAXone SOD 1 GM in D5W MINI-BAG PLUS 50 ML IV ONE (23:35)
[2022-12-20] MEDS ORDERED: LR 1,000 ML IV ONE (00:20)
[2022-12-20 01:45] VITALS: BP 150/98; TEMP 97.2; O2SAT 97
[2022-12-20 05:40] VITALS: BP 162/98; TEMP 96.8; O2SAT 96
[2022-12-20] MEDS ORDERED: HOME MED LIST COMPLETE! XX SCH (06:20)
[2022-12-20] MEDS ORDERED: IBAN150T6 PO (06:20)
[2022-12-20] MEDS ORDERED: METO1TAB7 PO (06:20)
[2022-12-20] MEDS ORDERED: LISI5TAB11 PO (06:20)
[2022-12-20 06:35] LABS: HEMATOCRIT 41.8 % (36.0-47.0); HEMOGLOBIN 13.6 g/dl (12.0-15.5); MEAN CORPUSCULAR HEMOGLOBIN 29.5 pg (27.0-33.0); MEAN CORPUSCULAR HGB CONC 32.5 g/dl (32.0-36.5); MEAN CORPUSCULAR VOLUME 90.7 fl (80.0-96.0); PLATELET COUNT, AUTOMATED 287 10^3/uL (150-450); RED BLOOD COUNT 4.61 10^6/uL (4.00-5.40); WHITE BLOOD COUNT 10.6 10^3/uL (4.0-10.0)
[2022-12-20 07:00] LABS: BLOOD UREA NITROGEN 11 MG/DL (9-23); CALCIUM LEVEL 9.6 MG/DL (8.3-10.6); CARBON DIOXIDE LEVEL 27 MMOL/L (20-31); CHLORIDE LEVEL 107 MMOL/L (98-107); CREATININE FOR GFR 0.48 MG/DL (0.55-1.30); GLOMERULAR FILTRATION RATE > 60.0 (>45); GLUCOSE, FASTING 153 MG/DL (74-106); MAGNESIUM LEVEL 1.8 MG/DL (1.8-2.4); POTASSIUM SERUM 3.7 MMOL/L (3.5-5.1); SODIUM LEVEL 143 MMOL/L (136-145)
[2022-12-20 07:29] LABS: PROCALCITONIN <0.04 ng/ml
[2022-12-20] MEDS: LEVOTHYROXINE 50MCG TABLET (0.05MG) PO SCH (07:58)
[2022-12-20] MEDS: VANICREAM MOISTURIZING SKIN CREAM 113GM TUBE TOP SCH ×2 (08:25→21:08)
[2022-12-20] MEDS: ENOXAPARIN 40MG/0.4ML SYRINGE (J1650 PER 10MG) SC SCH (08:26)
[2022-12-20] MEDS ORDERED: METOPROLOL SUCC (TopROL XL) 50MG **XL** TAB PO SCH (09:00)
[2022-12-20] MEDS: ACETAMINOPHEN TAB 650MG DOSE (2X325MG) PO PRN (10:51)
[2022-12-20 13:41] VITALS: BP 98/64; TEMP 97.1; O2SAT 93
[2022-12-20 13:56] VITALS: BP 86/58
[2022-12-20] MEDS ORDERED: cefTRIAXone SOD 1 GM in D5W MINI-BAG PLUS 50 ML IV SCH (21:00)
[2022-12-20 21:02] VITALS: BP 132/72; TEMP 97.5; O2SAT 95
[2022-12-20] MEDS: SIMVASTATIN 20 MG TAB PO SCH (21:08)
[2022-12-21 05:37] VITALS: BP 168/100; TEMP 97.4; O2SAT 97
[2022-12-21] MEDS: LEVOTHYROXINE 50MCG TABLET (0.05MG) PO SCH (05:53)
[2022-12-21 05:56] VITALS: BP 152/94
[2022-12-21 06:12] LABS: BASO % 0.4 % (0.0-1.0); EOS # 0.2 10^3/uL (0.0-0.5); EOS % 2.2 % (0.0-3.0); HEMATOCRIT 44.2 % (36.0-47.0); HEMOGLOBIN 14.2 g/dl (12.0-15.5); LYMPH # 2.3 10^3/uL (1.5-5.0); LYMPH % 26.2 % (24.0-44.0); MEAN CORPUSCULAR HEMOGLOBIN 29.6 pg (27.0-33.0); MEAN CORPUSCULAR HGB CONC 32.1 g/dl (32.0-36.5); MEAN CORPUSCULAR VOLUME 92.3 fl (80.0-96.0); MONO # 0.7 10^3/uL (0.0-0.8); MONO % 7.9 % (2.0-8.0); NEUTROPHILS # 5.6 10^3/uL (1.5-8.5); NEUTROPHILS % 62.9 % (36.0-66.0); PLATELET COUNT, AUTOMATED 287 10^3/uL (150-450); RED BLOOD COUNT 4.79 10^6/uL (4.00-5.40); WHITE BLOOD COUNT 8.9 10^3/uL (4.0-10.0)
[2022-12-21 06:41] LABS: BLOOD UREA NITROGEN 11 MG/DL (9-23); CALCIUM LEVEL 10.1 MG/DL (8.3-10.6); CARBON DIOXIDE LEVEL 28 MMOL/L (20-31); CHLORIDE LEVEL 109 MMOL/L (98-107); CREATININE FOR GFR 0.59 MG/DL (0.55-1.30); GLOMERULAR FILTRATION RATE > 60.0 (>45); GLUCOSE, FASTING 97 MG/DL (74-106); SODIUM LEVEL 146 MMOL/L (136-145)
[2022-12-21] MEDS: ENOXAPARIN 40MG/0.4ML SYRINGE (J1650 PER 10MG) SC SCH (08:14)
[2022-12-21] MEDS: ACETAMINOPHEN TAB 650MG DOSE (2X325MG) PO PRN (08:14)
[2022-12-21] MEDS ORDERED: FLUZONE HIGH DOSE(65YR UP)QUAD/PF 240MCG/0.7ML SYRINGE IM.IMMUN ONE (09:00)
[2022-12-21] MEDS: traMADol 50 MG TAB PO PRN ×2 (11:49→21:01)
[2022-12-21] MEDS: VANICREAM MOISTURIZING SKIN CREAM 113GM TUBE TOP SCH ×2 (11:50→21:01)
[2022-12-21] MEDS: CelecoXIB (CeleBREX) 100 MG CAP PO SCH ×2 (11:51→21:00)
[2022-12-21 14:00] VITALS: BP 119/74; TEMP 97.2; O2SAT 95
[2022-12-21] MEDS: ACETAMINOPHEN 500 MG TAB PO SCH (21:00)
[2022-12-21] MEDS: SIMVASTATIN 20 MG TAB PO SCH (21:01)
[2022-12-21 22:00] VITALS: BP 151/83; TEMP 96.8; O2SAT 95
[2022-12-22 05:13] VITALS: TEMP 97.2; O2SAT 94
[2022-12-22 05:42] VITALS: BP 130/84
[2022-12-22] MEDS: LEVOTHYROXINE 50MCG TABLET (0.05MG) PO SCH (05:42)
[2022-12-22 06:25] LABS: BASO % 0.5 % (0.0-1.0); EOS # 0.3 10^3/uL (0.0-0.5); EOS % 3.2 % (0.0-3.0); HEMATOCRIT 40.7 % (36.0-47.0); HEMOGLOBIN 12.9 g/dl (12.0-15.5); LYMPH # 2.2 10^3/uL (1.5-5.0); LYMPH % 28.2 % (24.0-44.0); MEAN CORPUSCULAR HEMOGLOBIN 29.3 pg (27.0-33.0); MEAN CORPUSCULAR HGB CONC 31.7 g/dl (32.0-36.5); MEAN CORPUSCULAR VOLUME 92.5 fl (80.0-96.0); MONO # 0.6 10^3/uL (0.0-0.8); MONO % 7.3 % (2.0-8.0); NEUTROPHILS # 4.7 10^3/uL (1.5-8.5); NEUTROPHILS % 60.5 % (36.0-66.0); PLATELET COUNT, AUTOMATED 289 10^3/uL (150-450); WHITE BLOOD COUNT 7.8 10^3/uL (4.0-10.0)
[2022-12-22 06:40] LABS: BLOOD UREA NITROGEN 19 MG/DL (9-23); CALCIUM LEVEL 10.5 MG/DL (8.3-10.6); CARBON DIOXIDE LEVEL 26 MMOL/L (20-31); CHLORIDE LEVEL 115 MMOL/L (98-107); CREATININE FOR GFR 0.64 MG/DL (0.55-1.30); GLOMERULAR FILTRATION RATE > 60.0 (>45); GLUCOSE, FASTING 113 MG/DL (74-106); POTASSIUM SERUM 3.9 MMOL/L (3.5-5.1); SODIUM LEVEL 150 MMOL/L (136-145)
[2022-12-22] MEDS ORDERED: D5W 1,000 ML IV ONE (08:00)
[2022-12-22] MEDS: CelecoXIB (CeleBREX) 100 MG CAP PO SCH ×2 (08:48→20:56)
[2022-12-22] MEDS: ACETAMINOPHEN 500 MG TAB PO SCH ×2 (08:48→20:58)
[2022-12-22] MEDS: ENOXAPARIN 40MG/0.4ML SYRINGE (J1650 PER 10MG) SC SCH (08:48)
[2022-12-22] MEDS: VANICREAM MOISTURIZING SKIN CREAM 113GM TUBE TOP SCH ×2 (08:49→20:59)
[2022-12-22 14:00] VITALS: BP 130/96; TEMP 97; O2SAT 98
[2022-12-22] MEDS: CLOTRIMAZOLE 1% TOPICAL CREAM 30GM TOP SCH ×2 (15:18→20:59)
[2022-12-22] MEDS: SIMVASTATIN 20 MG TAB PO SCH (20:56)
[2022-12-22] MEDS: traMADol 50 MG TAB PO PRN (20:57)
[2022-12-22 21:27] VITALS: BP 160/89; TEMP 97.5; O2SAT 96
[2022-12-23] MEDS: LEVOTHYROXINE 50MCG TABLET (0.05MG) PO SCH (05:50)
[2022-12-23 06:09] LABS: BASO % 0.5 % (0.0-1.0); EOS # 0.2 10^3/uL (0.0-0.5); HEMATOCRIT 41.6 % (36.0-47.0); HEMOGLOBIN 13.2 g/dl (12.0-15.5); LYMPH # 2.4 10^3/uL (1.5-5.0); LYMPH % 29.4 % (24.0-44.0); MEAN CORPUSCULAR HEMOGLOBIN 28.7 pg (27.0-33.0); MEAN CORPUSCULAR HGB CONC 31.7 g/dl (32.0-36.5); MEAN CORPUSCULAR VOLUME 90.4 fl (80.0-96.0); MONO # 0.4 10^3/uL (0.0-0.8); MONO % 5.5 % (2.0-8.0); NEUTROPHILS % 61.4 % (36.0-66.0); PLATELET COUNT, AUTOMATED 308 10^3/uL (150-450); WHITE BLOOD COUNT 8.1 10^3/uL (4.0-10.0)
[2022-12-23 06:15] VITALS: BP 140/90; TEMP 97.3; O2SAT 97
[2022-12-23 06:32] LABS: BLOOD UREA NITROGEN 15 MG/DL (9-23); CALCIUM LEVEL 9.5 MG/DL (8.3-10.6); CARBON DIOXIDE LEVEL 26 MMOL/L (20-31); CHLORIDE LEVEL 109 MMOL/L (98-107); CREATININE FOR GFR 0.58 MG/DL (0.55-1.30); GLOMERULAR FILTRATION RATE > 60.0 (>45); GLUCOSE, FASTING 92 MG/DL (74-106); SODIUM LEVEL 143 MMOL/L (136-145)
[2022-12-23] MEDS: CLOTRIMAZOLE 1% TOPICAL CREAM 30GM TOP SCH ×2 (08:26→21:53)
[2022-12-23] MEDS: ENOXAPARIN 40MG/0.4ML SYRINGE (J1650 PER 10MG) SC SCH (08:26)
[2022-12-23] MEDS: ACETAMINOPHEN 500 MG TAB PO SCH ×2 (08:26→21:51)
[2022-12-23] MEDS: CelecoXIB (CeleBREX) 100 MG CAP PO SCH (08:26)
[2022-12-23] MEDS: VANICREAM MOISTURIZING SKIN CREAM 113GM TUBE TOP SCH ×2 (08:27→21:52)
[2022-12-23 14:00] VITALS: BP 150/88; TEMP 97; O2SAT 94
[2022-12-23] MEDS: SENOKOT S TAB PO SCH ×2 (15:12→21:00)
[2022-12-23] MEDS: METOPROLOL SUCC (TopROL XL) 50MG **XL** TAB PO SCH (16:51)
[2022-12-23 20:50] VITALS: BP 131/88; TEMP 97.3; O2SAT 91
[2022-12-23] MEDS: SIMVASTATIN 20 MG TAB PO SCH (21:52)
[2022-12-23] MEDS: lisinopriL 5 MG TAB PO SCH (21:52)
[2022-12-24] MEDS: LEVOTHYROXINE 50MCG TABLET (0.05MG) PO SCH (05:50)
[2022-12-24 06:46] VITALS: BP 152/72; TEMP 97.8; O2SAT 96
[2022-12-24] MEDS: SENOKOT S TAB PO SCH ×2 (09:00→21:00)
[2022-12-24] MEDS: METOPROLOL SUCC (TopROL XL) 50MG **XL** TAB PO SCH (09:45)
[2022-12-24] MEDS: ENOXAPARIN 40MG/0.4ML SYRINGE (J1650 PER 10MG) SC SCH (09:46)
[2022-12-24] MEDS: CLOTRIMAZOLE 1% TOPICAL CREAM 30GM TOP SCH ×2 (09:46→21:28)
[2022-12-24] MEDS: ACETAMINOPHEN 500 MG TAB PO SCH ×2 (09:46→21:27)
[2022-12-24] MEDS: VANICREAM MOISTURIZING SKIN CREAM 113GM TUBE TOP SCH ×2 (09:46→21:27)
[2022-12-24] MEDS ORDERED: LORazepam 1 MG TAB PO ONE (21:25)
[2022-12-24] MEDS: SIMVASTATIN 20 MG TAB PO SCH (21:26)
[2022-12-24] MEDS: lisinopriL 5 MG TAB PO SCH (21:27)
[2022-12-24 23:29] VITALS: BP 162/90
[2022-12-25] MEDS: LEVOTHYROXINE 50MCG TABLET (0.05MG) PO SCH (05:31)
[2022-12-25 06:00] VITALS: BP 194/89; TEMP 97.3; O2SAT 97
[2022-12-25 06:10] LABS: BASO % 0.3 % (0.0-1.0); EOS # 0.2 10^3/uL (0.0-0.5); HEMATOCRIT 42.7 % (36.0-47.0); HEMOGLOBIN 13.6 g/dl (12.0-15.5); LYMPH # 2.2 10^3/uL (1.5-5.0); LYMPH % 23.8 % (24.0-44.0); MEAN CORPUSCULAR HEMOGLOBIN 28.9 pg (27.0-33.0); MEAN CORPUSCULAR HGB CONC 31.9 g/dl (32.0-36.5); MEAN CORPUSCULAR VOLUME 90.9 fl (80.0-96.0); MONO # 0.6 10^3/uL (0.0-0.8); MONO % 6.5 % (2.0-8.0); NEUTROPHILS # 6.3 10^3/uL (1.5-8.5); NEUTROPHILS % 67.1 % (36.0-66.0); PLATELET COUNT, AUTOMATED 334 10^3/uL (150-450); WHITE BLOOD COUNT 9.3 10^3/uL (4.0-10.0)
[2022-12-25 06:37] LABS: BLOOD UREA NITROGEN 16 MG/DL (9-23); CALCIUM LEVEL 9.6 MG/DL (8.3-10.6); CARBON DIOXIDE LEVEL 25 MMOL/L (20-31); CHLORIDE LEVEL 115 MMOL/L (98-107); CREATININE FOR GFR 0.53 MG/DL (0.55-1.30); GLOMERULAR FILTRATION RATE > 60.0 (>45); GLUCOSE, FASTING 103 MG/DL (74-106); POTASSIUM SERUM 4.2 MMOL/L (3.5-5.1); SODIUM LEVEL 148 MMOL/L (136-145)
[2022-12-25 06:38] LABS: FREE T4 1.21 NG/DL (0.89-1.76); THYROID STIMULATING HORMONE 3.954 uIU/ML (0.55-4.78); TOTAL T3 147.5 NG/DL (60.0-181.0)
[2022-12-25] MEDS: METOPROLOL SUCC (TopROL XL) 50MG **XL** TAB PO SCH (09:32)
[2022-12-25] MEDS: ACETAMINOPHEN 500 MG TAB PO SCH ×2 (09:32→21:07)
[2022-12-25] MEDS: ENOXAPARIN 40MG/0.4ML SYRINGE (J1650 PER 10MG) SC SCH (09:33)
[2022-12-25] MEDS: SENOKOT S TAB PO SCH ×2 (09:33→21:08)
[2022-12-25] MEDS: VANICREAM MOISTURIZING SKIN CREAM 113GM TUBE TOP SCH ×2 (09:34→21:08)
[2022-12-25] MEDS: CLOTRIMAZOLE 1% TOPICAL CREAM 30GM TOP SCH ×2 (09:34→21:08)
[2022-12-25 21:06] VITALS: BP 130/84
[2022-12-25] MEDS: SIMVASTATIN 20 MG TAB PO SCH (21:08)
[2022-12-25] MEDS: lisinopriL 5 MG TAB PO SCH (21:08)
[2022-12-26] MEDS: LEVOTHYROXINE 50MCG TABLET (0.05MG) PO SCH (05:26)
[2022-12-26] MEDS: ACETAMINOPHEN 500 MG TAB PO SCH ×2 (09:37→21:34)
[2022-12-26] MEDS: ENOXAPARIN 40MG/0.4ML SYRINGE (J1650 PER 10MG) SC SCH (09:37)
[2022-12-26] MEDS: SENOKOT S TAB PO SCH ×2 (09:38→21:33)
[2022-12-26] MEDS: METOPROLOL SUCC (TopROL XL) 50MG **XL** TAB PO SCH (09:39)
[2022-12-26] MEDS: amLODIPine 5 MG TAB PO SCH (09:39)
[2022-12-26] MEDS: CLOTRIMAZOLE 1% TOPICAL CREAM 30GM TOP SCH ×2 (09:39→21:35)
[2022-12-26] MEDS: VANICREAM MOISTURIZING SKIN CREAM 113GM TUBE TOP SCH ×2 (09:40→21:35)
[2022-12-26] MEDS: traMADol 50 MG TAB PO PRN (16:28)
[2022-12-26] MEDS: SIMVASTATIN 20 MG TAB PO SCH (21:33)
[2022-12-26] MEDS: lisinopriL 5 MG TAB PO SCH (21:35)
[2022-12-27 06:00] VITALS: BP 173/76; TEMP 97.2; O2SAT 96
[2022-12-27] MEDS: LEVOTHYROXINE 50MCG TABLET (0.05MG) PO SCH (06:00)
[2022-12-27] MEDS: ENOXAPARIN 40MG/0.4ML SYRINGE (J1650 PER 10MG) SC SCH (09:06)
[2022-12-27] MEDS: CLOTRIMAZOLE 1% TOPICAL CREAM 30GM TOP SCH ×2 (09:06→22:36)
[2022-12-27] MEDS: ACETAMINOPHEN 500 MG TAB PO SCH ×2 (09:06→22:32)
[2022-12-27] MEDS: VANICREAM MOISTURIZING SKIN CREAM 113GM TUBE TOP SCH ×2 (09:06→22:36)
[2022-12-27] MEDS: SENOKOT S TAB PO SCH ×2 (09:07→22:31)
[2022-12-27] MEDS: amLODIPine 5 MG TAB PO SCH (09:10)
[2022-12-27] MEDS: METOPROLOL SUCC (TopROL XL) 50MG **XL** TAB PO SCH (09:10)
[2022-12-27] MEDS: SIMVASTATIN 20 MG TAB PO SCH (22:35)
[2022-12-27] MEDS: lisinopriL 5 MG TAB PO SCH (22:35)
[2022-12-28] MEDS: LEVOTHYROXINE 50MCG TABLET (0.05MG) PO SCH (05:37)
[2022-12-28 06:00] VITALS: BP 141/68; TEMP 97.4; O2SAT 98
[2022-12-28 08:28] LABS: HEMATOCRIT 49.8 % (36.0-47.0); HEMOGLOBIN 15.5 g/dl (12.0-15.5); MEAN CORPUSCULAR HEMOGLOBIN 28.9 pg (27.0-33.0); MEAN CORPUSCULAR HGB CONC 31.1 g/dl (32.0-36.5); MEAN CORPUSCULAR VOLUME 92.9 fl (80.0-96.0); PLATELET COUNT, AUTOMATED 355 10^3/uL (150-450); RED BLOOD COUNT 5.36 10^6/uL (4.00-5.40); WHITE BLOOD COUNT 9.5 10^3/uL (4.0-10.0)
[2022-12-28 08:56] LABS: ALBUMIN 3.6 G/DL (3.2-5.2); ALKALINE PHOSPHATASE 70 U/L (46-116); ALT/SGPT 147 U/L (7.0-40); AST/SGOT 57 U/L (<34); BILIRUBIN,TOTAL 0.5 MG/DL (0.3-1.2); BLOOD UREA NITROGEN 24 MG/DL (9-23); CALCIUM LEVEL 10.3 MG/DL (8.3-10.6); CARBON DIOXIDE LEVEL 19 MMOL/L (20-31); CHLORIDE LEVEL 114 MMOL/L (98-107); CREATININE FOR GFR 0.54 MG/DL (0.55-1.30); GLOMERULAR FILTRATION RATE > 60.0 (>45); GLUCOSE, FASTING 96 MG/DL (74-106); POTASSIUM SERUM 5.1 MMOL/L (3.5-5.1); SODIUM LEVEL 144 MMOL/L (136-145); TOTAL PROTEIN 6.9 G/DL (5.7-8.2)
[2022-12-28] MEDS: ACETAMINOPHEN 500 MG TAB PO SCH ×2 (09:12→21:30)
[2022-12-28] MEDS: SENOKOT S TAB PO SCH ×2 (09:13→20:09)
[2022-12-28] MEDS: amLODIPine 5 MG TAB PO SCH (09:13)
[2022-12-28] MEDS: METOPROLOL SUCC (TopROL XL) 50MG **XL** TAB PO SCH (09:13)
[2022-12-28] MEDS: ENOXAPARIN 40MG/0.4ML SYRINGE (J1650 PER 10MG) SC SCH (09:14)
[2022-12-28] MEDS: VANICREAM MOISTURIZING SKIN CREAM 113GM TUBE TOP SCH ×2 (09:14→20:10)
[2022-12-28] MEDS: CLOTRIMAZOLE 1% TOPICAL CREAM 30GM TOP SCH ×2 (09:14→20:11)
[2022-12-28] MEDS: CelecoXIB (CeleBREX) 100 MG CAP PO PRN (20:09)
[2022-12-28] MEDS: SIMVASTATIN 10 MG TAB PO SCH (20:09)
[2022-12-28] MEDS: lisinopriL 5 MG TAB PO SCH (20:10)
[2022-12-29 05:30] VITALS: BP 158/76; TEMP 97.5; O2SAT 97
[2022-12-29] MEDS: LEVOTHYROXINE 50MCG TABLET (0.05MG) PO SCH (06:55)
[2022-12-29] MEDS: METOPROLOL SUCC (TopROL XL) 50MG **XL** TAB PO SCH (09:00)
[2022-12-29] MEDS: amLODIPine 5 MG TAB PO SCH (09:00)
[2022-12-29] MEDS: SENOKOT S TAB PO SCH ×2 (09:22→20:27)
[2022-12-29] MEDS: VANICREAM MOISTURIZING SKIN CREAM 113GM TUBE TOP SCH ×2 (09:23→20:28)
[2022-12-29] MEDS: ACETAMINOPHEN 500 MG TAB PO SCH ×2 (09:23→20:27)
[2022-12-29] MEDS: ENOXAPARIN 40MG/0.4ML SYRINGE (J1650 PER 10MG) SC SCH (09:23)
[2022-12-29] MEDS: CLOTRIMAZOLE 1% TOPICAL CREAM 30GM TOP SCH ×2 (09:23→20:28)
[2022-12-29 09:28] VITALS: BP 102/62
[2022-12-29 19:52] VITALS: BP 124/87; TEMP 97.6; O2SAT 97
[2022-12-29] MEDS: lisinopriL 5 MG TAB PO SCH (20:27)
[2022-12-29] MEDS: SIMVASTATIN 10 MG TAB PO SCH (20:27)
[2022-12-30 06:00] VITALS: BP 119/70; TEMP 97.7; O2SAT 96
[2022-12-30] MEDS: SENOKOT S TAB PO SCH ×2 (09:37→21:32)
[2022-12-30] MEDS: ACETAMINOPHEN 500 MG TAB PO SCH ×2 (09:37→21:33)
[2022-12-30] MEDS: CLOTRIMAZOLE 1% TOPICAL CREAM 30GM TOP SCH ×2 (09:38→21:33)
[2022-12-30] MEDS: VANICREAM MOISTURIZING SKIN CREAM 113GM TUBE TOP SCH ×2 (09:38→21:34)
[2022-12-30] MEDS: ENOXAPARIN 40MG/0.4ML SYRINGE (J1650 PER 10MG) SC SCH (09:38)
[2022-12-30] MEDS: METOPROLOL SUCC (TopROL XL) 50MG **XL** TAB PO SCH (09:39)
[2022-12-30] MEDS: amLODIPine 5 MG TAB PO SCH (09:39)
[2022-12-30] MEDS: LEVOTHYROXINE 50MCG TABLET (0.05MG) PO SCH (11:53)
[2022-12-30] MEDS: traMADol 50 MG TAB PO PRN (21:32)
[2022-12-30] MEDS: SIMVASTATIN 10 MG TAB PO SCH (21:32)
[2022-12-30] MEDS: lisinopriL 5 MG TAB PO SCH (21:33)
[2022-12-31] MEDS: LEVOTHYROXINE 50MCG TABLET (0.05MG) PO SCH (05:28)
[2022-12-31 05:48] VITALS: BP 140/81; TEMP 97.3; O2SAT 96
[2022-12-31 06:24] LABS: ALBUMIN 3.4 G/DL (3.2-5.2); ALKALINE PHOSPHATASE 79 U/L (46-116); ALT/SGPT 69 U/L (7.0-40); AST/SGOT 18 U/L (<34); BILIRUBIN,TOTAL 0.4 MG/DL (0.3-1.2); BLOOD UREA NITROGEN 25 MG/DL (9-23); CALCIUM LEVEL 10.1 MG/DL (8.3-10.6); CARBON DIOXIDE LEVEL 26 MMOL/L (20-31); CHLORIDE LEVEL 118 MMOL/L (98-107); CREATININE FOR GFR 0.57 MG/DL (0.55-1.30); GLOMERULAR FILTRATION RATE > 60.0 (>45); GLUCOSE, FASTING 96 MG/DL (74-106); POTASSIUM SERUM 4.6 MMOL/L (3.5-5.1); SODIUM LEVEL 150 MMOL/L (136-145); TOTAL PROTEIN 6.3 G/DL (5.7-8.2)
[2022-12-31] MEDS: ENOXAPARIN 40MG/0.4ML SYRINGE (J1650 PER 10MG) SC SCH (10:18)
[2022-12-31] MEDS: CLOTRIMAZOLE 1% TOPICAL CREAM 30GM TOP SCH ×2 (10:18→20:17)
[2022-12-31] MEDS: ACETAMINOPHEN 500 MG TAB PO SCH ×2 (10:19→20:15)
[2022-12-31] MEDS: SENOKOT S TAB PO SCH ×2 (10:19→20:14)
[2022-12-31] MEDS: VANICREAM MOISTURIZING SKIN CREAM 113GM TUBE TOP SCH ×2 (10:19→20:17)
[2022-12-31] MEDS: METOPROLOL SUCC (TopROL XL) 50MG **XL** TAB PO SCH (11:39)
[2022-12-31] MEDS: amLODIPine 5 MG TAB PO SCH (11:39)
[2022-12-31] MEDS: SIMVASTATIN 10 MG TAB PO SCH (20:14)
[2022-12-31] MEDS: lisinopriL 5 MG TAB PO SCH (20:17)
[2023-01-01] MEDS: LEVOTHYROXINE 50MCG TABLET (0.05MG) PO SCH (05:35)
[2023-01-01 05:57] VITALS: BP 158/80; TEMP 97.3; O2SAT 96
[2023-01-01] MEDS: ENOXAPARIN 40MG/0.4ML SYRINGE (J1650 PER 10MG) SC SCH (10:17)
[2023-01-01] MEDS: METOPROLOL SUCC (TopROL XL) 50MG **XL** TAB PO SCH (10:17)
[2023-01-01] MEDS: CLOTRIMAZOLE 1% TOPICAL CREAM 30GM TOP SCH ×2 (10:18→22:26)
[2023-01-01] MEDS: VANICREAM MOISTURIZING SKIN CREAM 113GM TUBE TOP SCH ×2 (10:18→22:26)
[2023-01-01] MEDS: ACETAMINOPHEN 500 MG TAB PO SCH ×2 (10:18→22:24)
[2023-01-01] MEDS: amLODIPine 5 MG TAB PO SCH (10:18)
[2023-01-01] MEDS: SENOKOT S TAB PO SCH ×2 (10:18→22:25)
[2023-01-01] MEDS: SIMVASTATIN 10 MG TAB PO SCH (22:25)
[2023-01-01] MEDS: lisinopriL 5 MG TAB PO SCH (22:25)
[2023-01-02] MEDS: LEVOTHYROXINE 50MCG TABLET (0.05MG) PO SCH (05:33)
[2023-01-02 06:06] VITALS: BP 123/73; TEMP 97.6; O2SAT 98
[2023-01-02] MEDS: SENOKOT S TAB PO SCH ×2 (08:24→21:48)
[2023-01-02] MEDS: ACETAMINOPHEN 500 MG TAB PO SCH ×2 (08:24→21:48)
[2023-01-02] MEDS: ENOXAPARIN 40MG/0.4ML SYRINGE (J1650 PER 10MG) SC SCH (08:24)
[2023-01-02] MEDS: METOPROLOL SUCC (TopROL XL) 50MG **XL** TAB PO SCH (08:27)
[2023-01-02] MEDS: amLODIPine 5 MG TAB PO SCH (08:27)
[2023-01-02] MEDS: VANICREAM MOISTURIZING SKIN CREAM 113GM TUBE TOP SCH ×2 (09:00→21:51)
[2023-01-02] MEDS: CLOTRIMAZOLE 1% TOPICAL CREAM 30GM TOP SCH ×2 (09:00→21:51)
[2023-01-02] MEDS: SIMVASTATIN 10 MG TAB PO SCH (21:48)
[2023-01-02] MEDS: traMADol 50 MG TAB PO PRN (21:49)
[2023-01-02] MEDS: lisinopriL 5 MG TAB PO SCH (21:50)
[2023-01-03] MEDS: LEVOTHYROXINE 50MCG TABLET (0.05MG) PO SCH (05:49)
[2023-01-03 06:00] VITALS: BP 117/68; TEMP 97.2; O2SAT 96
[2023-01-03] MEDS: VANICREAM MOISTURIZING SKIN CREAM 113GM TUBE TOP SCH ×2 (10:02→21:53)
[2023-01-03] MEDS: METOPROLOL SUCC (TopROL XL) 50MG **XL** TAB PO SCH (10:03)
[2023-01-03] MEDS: SENOKOT S TAB PO SCH ×2 (10:03→21:52)
[2023-01-03] MEDS: ACETAMINOPHEN 500 MG TAB PO SCH ×2 (10:03→21:00)
[2023-01-03] MEDS: CLOTRIMAZOLE 1% TOPICAL CREAM 30GM TOP SCH ×2 (10:04→21:52)
[2023-01-03] MEDS: ENOXAPARIN 40MG/0.4ML SYRINGE (J1650 PER 10MG) SC SCH (10:04)
[2023-01-03] MEDS: amLODIPine 5 MG TAB PO SCH (10:05)
[2023-01-03] MEDS: lisinopriL 5 MG TAB PO SCH (21:00)
[2023-01-03] MEDS: SIMVASTATIN 10 MG TAB PO SCH (21:52)
[2023-01-04] MEDS: traMADol 50 MG TAB PO PRN (04:01)
[2023-01-04 06:00] VITALS: BP 165/80; TEMP 97; O2SAT 95
[2023-01-04] MEDS: LEVOTHYROXINE 50MCG TABLET (0.05MG) PO SCH (06:15)
[2023-01-04] MEDS: VANICREAM MOISTURIZING SKIN CREAM 113GM TUBE TOP SCH ×2 (08:54→20:31)
[2023-01-04] MEDS: SENOKOT S TAB PO SCH (08:54)
[2023-01-04] MEDS: ACETAMINOPHEN 500 MG TAB PO SCH ×2 (08:55→20:31)
[2023-01-04] MEDS: CLOTRIMAZOLE 1% TOPICAL CREAM 30GM TOP SCH ×2 (08:55→20:32)
[2023-01-04] MEDS: ENOXAPARIN 40MG/0.4ML SYRINGE (J1650 PER 10MG) SC SCH (08:57)
[2023-01-04] MEDS: METOPROLOL SUCC (TopROL XL) 50MG **XL** TAB PO SCH (10:05)
[2023-01-04] MEDS: amLODIPine 5 MG TAB PO SCH (10:05)
[2023-01-04 11:00] VITALS: BP 122/66
[2023-01-04 11:05] VITALS: BP 140/78
[2023-01-04] MEDS ORDERED: SENOKOT S TAB PO PRN (18:35)
[2023-01-04 20:28] VITALS: BP 104/67
[2023-01-04] MEDS: lisinopriL 5 MG TAB PO SCH (20:30)
[2023-01-04] MEDS: SIMVASTATIN 10 MG TAB PO SCH (20:31)
[2023-01-05 05:07] VITALS: BP 149/74; TEMP 97.2; O2SAT 98
[2023-01-05] MEDS: LEVOTHYROXINE 50MCG TABLET (0.05MG) PO SCH (06:12)
[2023-01-05] MEDS: METOPROLOL SUCC (TopROL XL) 50MG **XL** TAB PO SCH (08:36)
[2023-01-05] MEDS: ACETAMINOPHEN 500 MG TAB PO SCH ×2 (08:36→20:36)
[2023-01-05] MEDS: amLODIPine 5 MG TAB PO SCH (08:36)
[2023-01-05] MEDS: ENOXAPARIN 40MG/0.4ML SYRINGE (J1650 PER 10MG) SC SCH (08:36)
[2023-01-05] MEDS: CLOTRIMAZOLE 1% TOPICAL CREAM 30GM TOP SCH ×2 (08:37→20:38)
[2023-01-05] MEDS: VANICREAM MOISTURIZING SKIN CREAM 113GM TUBE TOP SCH ×2 (08:37→20:39)
[2023-01-05 17:05] LABS: BLOOD UREA NITROGEN 27 MG/DL (9-23); CALCIUM LEVEL 10.3 MG/DL (8.3-10.6); CARBON DIOXIDE LEVEL 25 MMOL/L (20-31); CHLORIDE LEVEL 113 MMOL/L (98-107); CREATININE FOR GFR 0.57 MG/DL (0.55-1.30); GLOMERULAR FILTRATION RATE > 60.0 (>45); GLUCOSE, FASTING 170 MG/DL (74-106); POTASSIUM SERUM 4.5 MMOL/L (3.5-5.1); SODIUM LEVEL 148 MMOL/L (136-145)
[2023-01-05 19:03] LABS: OSMOLALITY SERUM 311 MOSM/KG (280-301)
[2023-01-05] MEDS: SIMVASTATIN 10 MG TAB PO SCH (20:35)
[2023-01-05] MEDS: RAMELTEON 8 MG TAB (ROZEREM) PO SCH (20:35)
[2023-01-05] MEDS: lisinopriL 5 MG TAB PO SCH (20:36)
[2023-01-06 05:23] VITALS: BP 126/73; TEMP 97.3; O2SAT 95
[2023-01-06] MEDS: LEVOTHYROXINE 50MCG TABLET (0.05MG) PO SCH (05:47)
[2023-01-06] MEDS: METOPROLOL SUCC (TopROL XL) 50MG **XL** TAB PO SCH (09:00)
[2023-01-06] MEDS: VANICREAM MOISTURIZING SKIN CREAM 113GM TUBE TOP SCH ×2 (09:11→20:49)
[2023-01-06] MEDS: CLOTRIMAZOLE 1% TOPICAL CREAM 30GM TOP SCH ×2 (09:11→20:49)
[2023-01-06] MEDS: ENOXAPARIN 40MG/0.4ML SYRINGE (J1650 PER 10MG) SC SCH (09:11)
[2023-01-06] MEDS: amLODIPine 5 MG TAB PO SCH (09:12)
[2023-01-06] MEDS: ACETAMINOPHEN 500 MG TAB PO SCH ×2 (09:12→20:52)
[2023-01-06 11:55] LABS: SODIUM,RANDOM URINE 120 MMOL/L
[2023-01-06 12:16] LABS: OSMOLALITY URINE 739 MOSM/KG (50-1400)
[2023-01-06] MEDS: RAMELTEON 8 MG TAB (ROZEREM) PO SCH (20:50)
[2023-01-06] MEDS: SIMVASTATIN 10 MG TAB PO SCH (20:50)
[2023-01-06] MEDS: lisinopriL 5 MG TAB PO SCH (20:52)
[2023-01-07 05:20] VITALS: BP 113/63; TEMP 97.9; O2SAT 99
[2023-01-07] MEDS: LEVOTHYROXINE 50MCG TABLET (0.05MG) PO SCH (05:38)
[2023-01-07] MEDS: amLODIPine 5 MG TAB PO SCH (08:32)
[2023-01-07] MEDS: ACETAMINOPHEN 500 MG TAB PO SCH ×2 (08:32→20:05)
[2023-01-07] MEDS: VANICREAM MOISTURIZING SKIN CREAM 113GM TUBE TOP SCH ×2 (08:32→20:01)
[2023-01-07] MEDS: CLOTRIMAZOLE 1% TOPICAL CREAM 30GM TOP SCH ×2 (08:32→20:05)
[2023-01-07] MEDS: METOPROLOL SUCC (TopROL XL) 50MG **XL** TAB PO SCH (08:32)
[2023-01-07] MEDS: ENOXAPARIN 40MG/0.4ML SYRINGE (J1650 PER 10MG) SC SCH (08:32)
[2023-01-07] MEDS: lisinopriL 5 MG TAB PO SCH (20:04)
[2023-01-07] MEDS: RAMELTEON 8 MG TAB (ROZEREM) PO SCH (20:05)
[2023-01-07] MEDS: SIMVASTATIN 10 MG TAB PO SCH (20:05)
[2023-01-07 22:10] VITALS: BP 129/75
[2023-01-08] MEDS: CelecoXIB (CeleBREX) 100 MG CAP PO PRN (03:16)
[2023-01-08] MEDS: LEVOTHYROXINE 50MCG TABLET (0.05MG) PO SCH (05:31)
[2023-01-08 05:50] VITALS: BP 148/57; TEMP 97; O2SAT 96
[2023-01-08 06:40] LABS: BLOOD UREA NITROGEN 27 MG/DL (9-23); CALCIUM LEVEL 9.8 MG/DL (8.3-10.6); CARBON DIOXIDE LEVEL 25 MMOL/L (20-31); CHLORIDE LEVEL 115 MMOL/L (98-107); CREATININE FOR GFR 0.54 MG/DL (0.55-1.30); GLOMERULAR FILTRATION RATE > 60.0 (>45); GLUCOSE, FASTING 87 MG/DL (74-106); POTASSIUM SERUM 4.1 MMOL/L (3.5-5.1); SODIUM LEVEL 148 MMOL/L (136-145)
[2023-01-08] MEDS: METOPROLOL SUCC (TopROL XL) 50MG **XL** TAB PO SCH (09:00)
[2023-01-08] MEDS: amLODIPine 5 MG TAB PO SCH (09:00)
[2023-01-08] MEDS: ACETAMINOPHEN 500 MG TAB PO SCH ×2 (09:53→21:51)
[2023-01-08] MEDS: CLOTRIMAZOLE 1% TOPICAL CREAM 30GM TOP SCH ×2 (09:53→21:51)
[2023-01-08] MEDS: ENOXAPARIN 40MG/0.4ML SYRINGE (J1650 PER 10MG) SC SCH (09:54)
[2023-01-08] MEDS: VANICREAM MOISTURIZING SKIN CREAM 113GM TUBE TOP SCH ×2 (13:59→21:51)
[2023-01-08 21:20] VITALS: BP 136/75
[2023-01-08] MEDS: SIMVASTATIN 10 MG TAB PO SCH (21:51)
[2023-01-08] MEDS: RAMELTEON 8 MG TAB (ROZEREM) PO SCH (21:51)
[2023-01-08] MEDS: lisinopriL 5 MG TAB PO SCH (21:51)
[2023-01-09 05:10] VITALS: BP 133/74; TEMP 97.3; O2SAT 93
[2023-01-09] MEDS: LEVOTHYROXINE 50MCG TABLET (0.05MG) PO SCH (05:41)
[2023-01-09] MEDS: METOPROLOL SUCC (TopROL XL) 50MG **XL** TAB PO SCH (09:00)
[2023-01-09] MEDS: amLODIPine 5 MG TAB PO SCH (09:00)
[2023-01-09] MEDS: ENOXAPARIN 40MG/0.4ML SYRINGE (J1650 PER 10MG) SC SCH (09:26)
[2023-01-09] MEDS: ACETAMINOPHEN 500 MG TAB PO SCH ×2 (09:27→20:11)
[2023-01-09] MEDS: VANICREAM MOISTURIZING SKIN CREAM 113GM TUBE TOP SCH ×2 (10:00→20:11)
[2023-01-09] MEDS: CLOTRIMAZOLE 1% TOPICAL CREAM 30GM TOP SCH ×2 (10:00→20:11)
[2023-01-09] MEDS: RAMELTEON 8 MG TAB (ROZEREM) PO SCH (20:10)
[2023-01-09] MEDS: SIMVASTATIN 10 MG TAB PO SCH (20:10)
[2023-01-09 20:11] VITALS: BP 123/59
[2023-01-09] MEDS: lisinopriL 5 MG TAB PO SCH (20:11)
[2023-01-10] MEDS: CelecoXIB (CeleBREX) 100 MG CAP PO PRN (04:24)
[2023-01-10 05:42] VITALS: BP 155/82; TEMP 96.6; O2SAT 92
[2023-01-10] MEDS: LEVOTHYROXINE 50MCG TABLET (0.05MG) PO SCH (05:42)
[2023-01-10] MEDS ORDERED: CLOTR1CR TOP (07:45)
[2023-01-10] MEDS ORDERED: AMLO1TAB24 PO (07:45)
[2023-01-10] MEDS ORDERED: LISI5TAB11 PO (07:46)
[2023-01-10] MEDS: CLOTRIMAZOLE 1% TOPICAL CREAM 30GM TOP SCH (08:04)
[2023-01-10] MEDS: VANICREAM MOISTURIZING SKIN CREAM 113GM TUBE TOP SCH (08:04)
[2023-01-10] MEDS: amLODIPine 5 MG TAB PO SCH (08:05)
[2023-01-10] MEDS: ACETAMINOPHEN 500 MG TAB PO SCH (08:05)
[2023-01-10] MEDS: METOPROLOL SUCC (TopROL XL) 50MG **XL** TAB PO SCH (08:05)
[2023-01-10] MEDS: ENOXAPARIN 40MG/0.4ML SYRINGE (J1650 PER 10MG) SC SCH (08:05)
== END 2023-01-10 09:09 ==
LOC: M ED 14:55 → EDBD 14:55 → M ED INP 14:56 → UNDOADMOB 12-20 00:16 → INTOOBSV 12-20 00:16 → M ED INP 12-20 00:16 → M MSPAV 12-20 01:35 → M ED INP 12-20 01:35 → UNDODISOB 01-10 09:09
PROVIDERS: ADMIT Internal Medicine; ATTEND Student in an Organized Health Care Education/Training Program
DX: R53.1 Weakness (principal); N39.0 Urinary tract infection, site not specified; R29.6 Repeated falls; G91.9 Hydrocephalus, unspecified; Z98.2 Presence of cerebrospinal fluid drainage device; E87.1 Hypo-osmolality and hyponatremia; R74.01 Elevation of levels of liver transaminase levels; I10 Essential (primary) hypertension; E78.5 Hyperlipidemia, unspecified; E03.9 Hypothyroidism, unspecified; Z79.899 Other long term (current) drug therapy; Z88.0 Allergy status to penicillin; Z88.1 Allergy status to other antibiotic agents; Z88.5 Allergy status to narcotic agent; Z23 Encounter for immunization
CPT/HCPCS: 36415; 71045; 80048; 80053; 81001; 83605; 83735; 83930; 83935; 84145; 84300; 84439; 84443; 84480; 85025; 85027; 86140; 87086; 87631; 87635; 90662; 93005; 93041; 94760; 96361; 96365; 96372; 96375; 97110; 97116; 97161; 97165; 97168; 97530; 97535; 99285; G0008; G0378; J0696; J1650

== ENCOUNTER → 2024-02-28 | Outpatient (REF) | payer MEDICARE, MEDICAID ==
[~2024-02-28] MED LIST changes: +AMLO1TAB24 PO; +CLOTR1CR TOP; +IBAN150T10 PO; +METO1TAB7 PO
[2024-02-28 10:36] LABS: HEMOGLOBIN 14.3 g/dl (12.0-15.5); MEAN CORPUSCULAR HEMOGLOBIN 29.2 pg (27.0-33.0); MEAN CORPUSCULAR HGB CONC 31.8 g/dl (32.0-36.5); PLATELET COUNT, AUTOMATED 258 10^3/uL (150-450); RED BLOOD COUNT 4.89 10^6/uL (4.00-5.40); WHITE BLOOD COUNT 8.8 10^3/uL (4.0-10.0)
[2024-02-28 10:54] LABS: ALBUMIN 3.5 G/DL (3.2-5.2); ALKALINE PHOSPHATASE 67 U/L (35-104); ALT/SGPT 12 U/L (7.0-40); AST/SGOT 10 U/L (<34); BILIRUBIN,TOTAL 0.6 MG/DL (0.3-1.2); BLOOD UREA NITROGEN 13 MG/DL (9-23); CALCIUM LEVEL 10.6 MG/DL (8.3-10.6); CARBON DIOXIDE LEVEL 31 MMOL/L (20-31); CHLORIDE LEVEL 102 MMOL/L (98-107); CHOLESTEROL LEVEL 159 MG/DL (<200); CHOLESTEROL RISK RATIO 3.07 (<5); CREATININE FOR GFR 0.57 MG/DL (0.55-1.30); GLOMERULAR FILTRATION RATE > 60.0 (>45); GLUCOSE, FASTING 120 MG/DL (74-106); HDL CHOLESTEROL 51.7 MG/DL (>40); LDL CHOLESTEROL 81.9 MG/DL (<100); NON-HDL-C 107.3 MG/DL; POTASSIUM SERUM 3.3 MMOL/L (3.5-5.1); SODIUM LEVEL 142 MMOL/L (136-145); TOTAL PROTEIN 6.5 G/DL (5.7-8.2); TRIGLYCERIDES LEVEL 127 MG/DL (<150)
[2024-02-28 10:55] LABS: THYROID STIMULATING HORMONE 0.837 uIU/ML (0.55-4.78)
[2024-02-28 11:21] LABS: THYROXINE (T4) 14.9 UG/DL (4.5-10.9)
== END ==
LOC: SKLAB5 07:00
PROVIDERS: ATTEND Internal Medicine
DX: E78.5 Hyperlipidemia, unspecified (principal); E03.9 Hypothyroidism, unspecified; I10 Essential (primary) hypertension

== ENCOUNTER → 2024-03-30 | Outpatient (REF) | payer MEDICARE, MEDICAID ==
[2024-03-30 11:00] LABS: BLOOD UREA NITROGEN 16 MG/DL (9-23); CALCIUM LEVEL 10.2 MG/DL (8.3-10.6); CARBON DIOXIDE LEVEL 28 MMOL/L (20-31); CHLORIDE LEVEL 107 MMOL/L (98-107); CREATININE FOR GFR 0.62 MG/DL (0.55-1.30); GLOMERULAR FILTRATION RATE > 60.0 (>45); GLUCOSE, FASTING 137 MG/DL (74-106); POTASSIUM SERUM 4.2 MMOL/L (3.5-5.1); SODIUM LEVEL 143 MMOL/L (136-145)
== END ==
LOC: SKLAB5 07:54
PROVIDERS: ATTEND Internal Medicine
DX: E87.6 Hypokalemia (principal)

== ENCOUNTER → 2024-05-06 | Outpatient (REF) | payer MEDICARE, MEDICAID | LOC: SKLAB5 16:25 | PROVIDERS: ATTEND Internal Medicine | DX: Z13.818 Encounter for screening for other digestive system disorders (principal) ==

== ENCOUNTER → 2024-05-09 | Outpatient (REF) | payer MEDICARE, MEDICAID | LOC: SKLAB5 07:00 | PROVIDERS: ATTEND Internal Medicine | DX: Z13.818 Encounter for screening for other digestive system disorders (principal) ==

== ENCOUNTER → 2024-06-25 | Outpatient (REF) | payer MEDICARE, MEDICAID ==
[2024-06-25 06:10] LABS: HEMATOCRIT 43.8 % (36.0-47.0); HEMOGLOBIN 13.8 g/dl (12.0-15.5); MEAN CORPUSCULAR HEMOGLOBIN 28.6 pg (27.0-33.0); MEAN CORPUSCULAR HGB CONC 31.5 g/dl (32.0-36.5); MEAN CORPUSCULAR VOLUME 90.7 fl (80.0-96.0); PLATELET COUNT, AUTOMATED 236 10^3/uL (150-450); RED BLOOD COUNT 4.83 10^6/uL (4.00-5.40); WHITE BLOOD COUNT 7.6 10^3/uL (4.0-10.0)
[2024-06-25 06:45] LABS: ALBUMIN 3.1 G/DL (3.2-5.2); ALKALINE PHOSPHATASE 61 U/L (35-104); ALT/SGPT 10 U/L (7.0-40); AST/SGOT < 8 U/L (<34); BILIRUBIN,TOTAL 0.6 MG/DL (0.3-1.2); BLOOD UREA NITROGEN 12 MG/DL (9-23); CALCIUM LEVEL 9.5 MG/DL (8.3-10.6); CARBON DIOXIDE LEVEL 30 MMOL/L (20-31); CHLORIDE LEVEL 104 MMOL/L (98-107); CHOLESTEROL LEVEL 146 MG/DL (<200); CHOLESTEROL RISK RATIO 3.35 (<5); CREATININE FOR GFR 0.58 MG/DL (0.55-1.30); GLOMERULAR FILTRATION RATE > 90.0 (>45); GLUCOSE, FASTING 89 MG/DL (74-106); HDL CHOLESTEROL 43.5 MG/DL (>40); LDL CHOLESTEROL 85.9 MG/DL (<100); NON-HDL-C 102.5 MG/DL; POTASSIUM SERUM 3.6 MMOL/L (3.5-5.1); SODIUM LEVEL 142 MMOL/L (136-145); TOTAL PROTEIN 5.7 G/DL (5.7-8.2); TRIGLYCERIDES LEVEL 83 MG/DL (<150)
[2024-06-25 06:46] LABS: THYROID STIMULATING HORMONE 0.203 uIU/ML (0.55-4.78); THYROXINE (T4) 14.8 UG/DL (4.5-10.9)
== END ==
LOC: SKLAB5 07:00
PROVIDERS: ATTEND Internal Medicine
DX: I10 Essential (primary) hypertension (principal); E03.9 Hypothyroidism, unspecified

== ENCOUNTER → 2024-10-22 | Outpatient (REF) | payer MEDICARE, MEDICAID ==
[~2024-10-22] MED LIST changes: -IBUP-1022 PO; +IBUP600T42 PO
[2024-10-22 09:30] LABS: PLATELET COUNT, AUTOMATED 267 10^3/uL (150-450)
[2024-10-22 10:00] LABS: ALT/SGPT 16 U/L (7.0-40); AST/SGOT 16 U/L (<34); CALCIUM LEVEL 10.6 MG/DL (8.3-10.6); CARBON DIOXIDE LEVEL 24 MMOL/L (20-31); CHLORIDE LEVEL 108 MMOL/L (98-107); CREATININE FOR GFR 0.63 MG/DL (0.55-1.30); GLOMERULAR FILTRATION RATE > 90.0 (>45); POTASSIUM SERUM 4.2 MMOL/L (3.5-5.1); SODIUM LEVEL 142 MMOL/L (136-145)
[2024-10-22 10:02] LABS: FREE T4 1.97 NG/DL (0.89-1.76)
== END ==
LOC: SKLAB5 07:00
PROVIDERS: ATTEND Internal Medicine
DX: E03.9 Hypothyroidism, unspecified (principal); I10 Essential (primary) hypertension

== ENCOUNTER → 2024-12-29 | Outpatient (CLI) | payer MEDICARE, MEDICAID | LOC: M RAD 10:20 | PROVIDERS: ATTEND Nurse Practitioner | DX: I70.203 Unspecified atherosclerosis of native arteries of extremities, bilateral legs (principal); Z86.12 Personal history of poliomyelitis ==

== ENCOUNTER → 2025-01-29 | Outpatient (CLI) | payer MEDICARE, MEDICAID | LOC: M WHC 10:06 | PROVIDERS: ATTEND Internal Medicine | DX: Z12.31 Encounter for screening mammogram for malignant neoplasm of breast (principal); M81.0 Age-related osteoporosis without current pathological fracture ==